=== PATIENT | female | born 1985 | race Hispanic/Latino ===

== ENCOUNTER 2022-04-03 15:52 | Emergency (ER) | payer MEDICAID, SELFPAY ==
[2022-04-03] VITALS (15 sets, daily range): BP systolic 157–178; BP diastolic 75–98; PULSE 57–70; RESP 16–18; TEMP 36.6; O2SAT 99–100; BMI 34.3
--- NOTE | 2022-04-03 16:21 | ED.RECABL ---
HPI - Recheck/Abnormal Lab/Rx <Elan Portillo DO - Last Filed: 04/10/22 00:37> General Chief Complaint: Recheck/Abnormal Lab/Rx Stated Complaint: high kidney levels, sent by provider Time Seen by Provider: 04/03/22 16:21 Source: patient Mode of arrival: Ambulatory History of Present Illness HPI narrative: 36-year-old female nonsmoker with no medical history presents with her and a chief complaint of elevated kidney levels. She states that she had been evaluated in September was found to have elevated creatinine (1.68) in the absence of any symptoms. She had followed up recently with her primary care provider and when results came back today she was contacted at home and instructed to present here. She denies any pain or fever chills. She takes no medications. She denies vomiting, diarrhea or trouble urinating. She has no chest pain or shortness of breath. She complains only of generalized fatigue and being tired. Related Data Home Medications Medication Instructions Recorded Confirmed No Known Home Medications 04/04/22 04/04/22 Allergies Allergy/AdvReac Type Severity Reaction Status Date / Time Penicillins Allergy Intermediate ITCHING Verified 04/03/22 16:11 Review of Systems <Elan Portillo DO - Last Filed: 04/10/22 00:37> Review of Systems Narrative: GENERAL: See HPI HEENT: Denies sinus pain, ear pain, sore throat, difficulty swallowing, dizziness. RESPIRATORY: Denies dyspnea, cough, wheezing, hemoptysis, sputum. CARDIOVASCULAR: Denies chest pain, palpitations, orthopnea, edema, GASTROINTESTINAL: Denies nausea, vomiting, abdominal pain, diarrhea, constipation, melena. : Denies dysuria, frequency, incontinence, hematuria, urinary retention. MUSCULOSKELETAL: denies weakness, joint pain, or bony pain SKIN: Denies rash, skin lesions, or other NEUROLOGIC: Denies weakness, headache, numbness, change in speech, confusion, seizures, incoordination. PSYCHIATRIC: No concerning psychosocial issues. 12 point review of systems is negative except for those stated above Patient History <Elan Portillo DO - Last Filed: 04/10/22 00:37> Social History Smoking Status: Never smoker Smoking Status: Never smoker alcohol intake frequency: 0-2 drinks per day Substance Use Type: does not use Exam <Elan Portillo DO - Last Filed: 04/10/22 00:37> Narrative Exam Narrative: GENERAL: [36] year old patient appears stated age. Well-developed patient, in mild distress. HEAD: Atraumatic. Normocephalic. EYES: Pupils equal round and reactive. Extraocular motions intact. No scleral icterus. No injection or drainage. ENT: Nose without bleeding, purulent drainage. Throat without erythema, tonsillar hypertrophy or exudate. Airway patent. NECK: Trachea midline. Non tender CARDIOVASCULAR: Regular rate and rhythm without murmurs, gallops, or rubs. RESPIRATORY: Clear to auscultation. Breath sounds equal bilaterally. No wheezes, rales, or rhonchi. GASTROINTESTINAL: Abdomen soft, non-tender, nondistended. EXTREMITIES: No edema or joint tenderness. BACK: Nontender without deformity or crepitance. No flank tenderness. NEURO: AOx3. SKIN: No rash or erythema of visible areas Initial Vital Signs Initial Vital Signs: Vital Signs Temperature 98 F 04/03/22 16:06 Pulse Rate 63 04/03/22 16:06 Respiratory Rate 16 04/03/22 16:06 Blood Pressure 157/82 H 04/03/22 16:06 Pulse Oximetry 100 04/03/22 16:06 Oxygen Delivery Method 04/03/22 16:06 <Debbie Donahue DO - Last Filed: 04/11/22 08:30> Initial Vital Signs Initial Vital Signs: Vital Signs Temperature 98 F 04/03/22 16:06 Pulse Rate 63 04/03/22 16:06 Respiratory Rate 16 04/03/22 16:06 Blood Pressure 157/82 H 04/03/22 16:06 Pulse Oximetry 100 04/03/22 16:06 Oxygen Delivery Method 04/03/22 16:06 <Ammon Cruz MD - Last Filed: 04/05/22 19:37> Initial Vital Signs Initial Vital Signs: Vital Signs Temperature 98 F 04/03/22 16:06 Pulse Rate 63 04/03/22 16:06 Respiratory Rate 16 04/03/22 16:06 Blood Pressure 157/82 H 04/03/22 16:06 Pulse Oximetry 100 04/03/22 16:06 Oxygen Delivery Method 04/03/22 16:06 Course <Elan Portillo DO - Last Filed: 04/10/22 00:37> Orders Ordered: Discontinued Medications Acetaminophen (Acetaminophen 325 Mg Tablet) 650 mg PO NOW ONE Stop: 04/04/22 20:33 Last Admin: 04/04/22 20:37 Dose: 650 mg Documented By: SERGIO Acetaminophen (Acetaminophen 325 Mg Tablet) 650 mg PO NOW ONE Stop: 04/05/22 15:48 Last Admin: 04/05/22 15:58 Dose: 650 mg Documented By: AMIE Sodium Chloride (Normal Saline 0.9%) 1,000 mls @ 1,000 mls/hr IV BOLUS ONE Stop: 04/03/22 17:48 Last Infusion: 04/03/22 18:50 Dose: 0 mls/hr Documented By: Admin: 04/03/22 16:58 Dose: 1,000 mls/hr Documented By: MAHI Sodium Chloride (Normal Saline 0.9%) 1,000 mls @ 150 mls/hr IV CONT JAZZMINE Last Infusion: 04/04/22 09:09 Dose: 0 mls/hr Documented By: Infusion: 04/04/22 02:29 Dose: 100 mls/hr Documented By: Admin: 04/03/22 23:35 Dose: 150 mls/hr Documented By: MAHI Sodium Chloride (Normal Saline 0.9%) 1,000 mls @ 100 mls/hr IV CONT JAZZMINE Last Admin: 04/04/22 09:00 Dose: Not Given Documented By: CTS Sodium Chloride (Normal Saline 0.9%) 1,000 mls @ 1,000 mls/hr IV BOLUS PRN PRN Reason: Fluid replacement Sodium Chloride (Normal Saline 0.9%) 500 mls @ 1,000 mls/hr IV BOLUS ONE Stop: 04/05/22 12:11 Last Infusion: 04/05/22 12:30 Dose: 0 mls/hr Documented By: Admin: 04/05/22 11:59 Dose: 1,000 mls/hr Documented By: AMIE Sodium Chloride (Normal Saline 0.9%) 1,000 mls @ 100 mls/hr IV BOLUS ONE Stop: 04/05/22 21:43 Last Infusion: 04/05/22 16:56 Dose: 0 mls/hr Documented By: Admin: 04/05/22 12:00 Dose: 100 mls/hr Documented By: AMIE Vital Signs Vital signs: Vital Signs - 8 hr 04/05/22 11:39 04/05/22 14:50 04/05/22 14:51 Temperature 98.0 F Pulse Rate 63 64 Respiratory Rate 16 16 Blood Pressure 157/88 H 140/84 140/84 Pulse Oximetry 99 99 Oxygen Delivery Method Room Air 04/05/22 14:51 04/05/22 16:35 04/05/22 16:34 Temperature Pulse Rate 73 67 67 Respiratory Rate 16 Blood Pressure 171/92 H Pulse Oximetry 91 100 100 Oxygen Delivery Method Room Air 04/05/22 16:54 Temperature Pulse Rate 63 Respiratory Rate 18 Blood Pressure 147/91 H Pulse Oximetry 100 Oxygen Delivery Method Room Air <Debbie Donahue DO - Last Filed: 04/11/22 08:30> Orders Ordered: Discontinued Medications Acetaminophen (Acetaminophen 325 Mg Tablet) 650 mg PO NOW ONE Stop: 04/04/22 20:33 Last Admin: 04/04/22 20:37 Dose: 650 mg Documented By: SERGIO Acetaminophen (Acetaminophen 325 Mg Tablet) 650 mg PO NOW ONE Stop: 04/05/22 15:48 Last Admin: 04/05/22 15:58 Dose: 650 mg Documented By: AMIE Sodium Chloride (Normal Saline 0.9%) 1,000 mls @ 1,000 mls/hr IV BOLUS ONE Stop: 04/03/22 17:48 Last Infusion: 04/03/22 18:50 Dose: 0 mls/hr Documented By: Admin: 04/03/22 16:58 Dose: 1,000 mls/hr Documented By: MAHI Sodium Chloride (Normal Saline 0.9%) 1,000 mls @ 150 mls/hr IV CONT JAZZMINE Last Infusion: 04/04/22 09:09 Dose: 0 mls/hr Documented By: Infusion: 04/04/22 02:29 Dose: 100 mls/hr Documented By: MARIA LUISA Admin: 04/03/22 23:35 Dose: 150 mls/hr Documented By: MAHI Sodium Chloride (Normal Saline 0.9%) 1,000 mls @ 100 mls/hr IV CONT JAZZMINE Last Admin: 04/04/22 09:00 Dose: Not Given Documented By: ANAYELI Sodium Chloride (Normal Saline 0.9%) 1,000 mls @ 1,000 mls/hr IV BOLUS PRN PRN Reason: Fluid replacement Sodium Chloride (Normal Saline 0.9%) 500 mls @ 1,000 mls/hr IV BOLUS ONE Stop: 04/05/22 12:11 Last Infusion: 04/05/22 12:30 Dose: 0 mls/hr Documented By: Admin: 04/05/22 11:59 Dose: 1,000 mls/hr Documented By: AMIE Sodium Chloride (Normal Saline 0.9%) 1,000 mls @ 100 mls/hr IV BOLUS ONE Stop: 04/05/22 21:43 Last Infusion: 04/05/22 16:56 Dose: 0 mls/hr Documented By: Admin: 04/05/22 12:00 Dose: 100 mls/hr Documented By: AMIE Reevaluation(s) Reevaluation #1: No complaints at this time. Used interperter language to review patient's labs and findings today and plan of care. She is aware of plan that she is currently boarding to talk to Nephrology and if improvement she might be able to be kept here if her renal function does not improve and she starts not making urine will require transfer. Time: 22:14 Consultations Consultation #1: Dr. Granados, nephrology at [facility]. Recommends further evaluation for vasculitis. Would recommend continuing fluids about 100 mL/hour, patient's creatinine improved to the 3-4 range could potentially be discharged home but if continuing in the 5 range probably needs transfer for renal biopsy. Would recommend C3, C4 complement, Anca, hep B, hep C, MAKAYLA, anti GBM and SPEP and UPEP for workup at this time. Time: 01:06 Vital Signs Vital signs: Vital Signs - 8 hr 04/05/22 11:39 04/05/22 14:50 04/05/22 14:51 Temperature 98.0 F Pulse Rate 63 64 Respiratory Rate 16 16 Blood Pressure 157/88 H 140/84 140/84 Pulse Oximetry 99 99 Oxygen Delivery Method Room Air 04/05/22 14:51 04/05/22 16:35 04/05/22 16:34 Temperature Pulse Rate 73 67 67 Respiratory Rate 16 Blood Pressure 171/92 H Pulse Oximetry 91 100 100 Oxygen Delivery Method Room Air 04/05/22 16:54 Temperature Pulse Rate 63 Respiratory Rate 18 Blood Pressure 147/91 H Pulse Oximetry 100 Oxygen Delivery Method Room Air <Ammon Cruz MD - Last Filed: 04/05/22 19:37> Orders Ordered: Discontinued Medications Acetaminophen (Acetaminophen 325 Mg Tablet) 650 mg PO NOW ONE Stop: 04/04/22 20:33 Last Admin: 04/04/22 20:37 Dose: 650 mg Documented By: SERGIO Acetaminophen (Acetaminophen 325 Mg Tablet) 650 mg PO NOW ONE Stop: 04/05/22 15:48 Last Admin: 04/05/22 15:58 Dose: 650 mg Documented By: AMIE Sodium Chloride (Normal Saline 0.9%) 1,000 mls @ 1,000 mls/hr IV BOLUS ONE Stop: 04/03/22 17:48 Last Infusion: 04/03/22 18:50 Dose: 0 mls/hr Documented By: Admin: 04/03/22 16:58 Dose: 1,000 mls/hr Documented By: MAHI Sodium Chloride (Normal Saline 0.9%) 1,000 mls @ 150 mls/hr IV CONT JAZZMINE Last Infusion: 04/04/22 09:09 Dose: 0 mls/hr Documented By: Infusion: 04/04/22 02:29 Dose: 100 mls/hr Documented By: DKReji Admin: 04/03/22 23:35 Dose: 150 mls/hr Documented By: MAHI Sodium Chloride (Normal Saline 0.9%) 1,000 mls @ 100 mls/hr IV CONT JAZZMINE Last Admin: 04/04/22 09:00 Dose: Not Given Documented By: CTS Sodium Chloride (Normal Saline 0.9%) 1,000 mls @ 1,000 mls/hr IV BOLUS PRN PRN Reason: Fluid replacement Sodium Chloride (Normal Saline 0.9%) 500 mls @ 1,000 mls/hr IV BOLUS ONE Stop: 04/05/22 12:11 Last Infusion: 04/05/22 12:30 Dose: 0 mls/hr Documented By: Admin: 04/05/22 11:59 Dose: 1,000 mls/hr Documented By: AMIE Sodium Chloride (Normal Saline 0.9%) 1,000 mls @ 100 mls/hr IV BOLUS ONE Stop: 04/05/22 21:43 Last Infusion: 04/05/22 16:56 Dose: 0 mls/hr Documented By: Admin: 04/05/22 12:00 Dose: 100 mls/hr Documented By: RLS Vital Signs Vital signs: Vital Signs - 8 hr 04/05/22 11:39 04/05/22 14:50 04/05/22 14:51 Temperature 98.0 F Pulse Rate 63 64 Respiratory Rate 16 16 Blood Pressure 157/88 H 140/84 140/84 Pulse Oximetry 99 99 Oxygen Delivery Method Room Air 04/05/22 14:51 04/05/22 16:35 04/05/22 16:34 Temperature Pulse Rate 73 67 67 Respiratory Rate 16 Blood Pressure 171/92 H Pulse Oximetry 91 100 100 Oxygen Delivery Method Room Air 04/05/22 16:54 Temperature Pulse Rate 63 Respiratory Rate 18 Blood Pressure 147/91 H Pulse Oximetry 100 Oxygen Delivery Method Room Air MDM - Recheck/Abnormal Lab/Rx <Elan Portillo, DO - Last Filed: 04/10/22 00:37> Lab Data Result diagrams: 04/04/22 08:00 04/05/22 13:40 Labs: Lab Results 04/03/22 04/03/22 04/03/22 Range/Units 16:11 16:11 16:25 WBC 5.2 (4.5-11.0) X10^3/uL RBC 2.93 L (4.0-5.2) X10^6/uL Hgb 9.1 L (12.0-16.0) g/dL Hct 26.1 L (36-46) % MCV 89.3 (80-100) fL MCH 31.0 (26-34) PG MCHC 34.7 (30-36) % RDW 13.9 (11.6-14.8) % Plt Count 202 (150-400) X10^3/uL Neut % (Auto) 64.9 (50-75) % Lymph % (Auto) 25.1 (25-40) % [place] % (Auto) 7.4 (3-14) % Eos % (Auto) 1.6 L (2-4) % Baso % (Auto) 1.0 (0-2) % Neut # (Auto) 3400 (6367-9426) /uL Lymph # (Auto) 1300 (8892-4083) /uL [place] # (Auto) 400 (0-900) /uL Eos # (Auto) 100 (0-450) /uL Baso # (Auto) 0 (0-100) /uL Sodium 137 (137-145) mmol/L Potassium 5.0 (3.4-5.1) mmol/L Chloride 108 H (98-107) mmol/L Carbon Dioxide 18 L (22-32) mmol/L BUN 71 H (7-17) mg/dL Creatinine 6.46 H (0.52-1.04) mg/dL Estimated GFR 8 L (>60) mL/min BUN/Creatinine Ratio 11.0 (6-22) Glucose 94 (70-100) mg/dL Calcium 7.0 L (8.4-10.2) mg/dL Phosphorus (2.5-4.5) mg/dL Magnesium (1.6-2.3) mg/dL Total Bilirubin (0.2-1.3) mg/dL AST (14-36) IU/L ALT (<35) IU/L Alkaline Phosphatase (38-126) U/L Total Protein (6.3-8.2) g/dL Total Protein (PEP) (6.0-8.5) g/dL Albumin (3.5-5.0) g/dL Albumin (PEP) (2.9-4.4) g/dL Globulin (1.7-4.1) g/dL Albumin/Globulin Ratio (1.0-2.8) Albumin/Globulin (PEP) (0.7-1.7) Ydtgn-7-Qfmzzqmil (0.0-0.4) g/dL Agwug-8-Cygxcwrbe (0.4-1.0) g/dL Beta Globulins (0.7-1.3) g/dL Gamma Globulins (0.4-1.8) g/dL Gamma Glob/Tot Protein (2.2-3.9) g/dL M-Celso (Not Observed) g/dL M-Celso % (Not Observed) % Urine Color Urine Appearance Urine pH (4.5-8.0) Ur Specific [place] (1.000-1.035) Urine Protein (Negative) Urine Glucose (UA) (Negative) g/dL Urine Ketones (NEGATIVE) Urine Occult Blood (Negative) Urine Nitrate (Negative) Urine Bilirubin (NEGATIVE) Urine Urobilinogen (0.2) E.U./dL Ur Leukocyte Esterase (NEGATIVE) Urine RBC (0-5/HPF) Urine WBC (0-5/HPF) Ur Squamous Epith Cells (0-5/HPF) Amorphous Sediment Urine Bacteria (None) Ur Culture Indicated? Urine Eosinophils Urine Osmolality (.) mOsmol/kg Ur Random Sodium (30-90) mmol/L Urine Creatinine mg/dL Urine Total Protein (Not Estab.) mg/dL Urine Albumin (.) % U Iqako-2-Euuzrxce (.) % U Vdeqi-8-Eryodbkv (.) % U Beta Globulin (.) % U Gamma Globulin (.) % Urine PEP Note (.) Urine Test (Negative) c-ANCA Titer (Neg:<1:20) titer p-ANCA Titer (Neg:<1:20) titer Atypical p-ANCA Titer (Neg:<1:20) titer Complement C3 (82-167) mg/dL Complement C4 (12-38) mg/dL SARS-CoV-2 (PCR) Negative (Negative) Hepatitis A IgM Ab (Negative) Hep Bs Antigen (Negative) Hep B Core IgM Ab (Negative) Hepatitis C Antibody (0.0-0.9) s/co ratio Hep C Ab Signal/Cutoff (.) Ref Lab Notation (.) 04/03/22 04/03/22 04/03/22 Range/Units 17:40 17:40 17:40 WBC (4.5-11.0) X10^3/uL RBC (4.0-5.2) X10^6/uL Hgb (12.0-16.0) g/dL Hct (36-46) % MCV (80-100) fL MCH (26-34) PG MCHC (30-36) % RDW (11.6-14.8) % Plt Count (150-400) X10^3/uL Neut % (Auto) (50-75) % Lymph % (Auto) (25-40) % [place] % (Auto) (3-14) % Eos % (Auto) (2-4) % Baso % (Auto) (0-2) % Neut # (Auto) (5412-1699) /uL Lymph # (Auto) (1016-7119) /uL [place] # (Auto) (0-900) /uL Eos # (Auto) (0-450) /uL Baso # (Auto) (0-100) /uL Sodium (137-145) mmol/L Potassium (3.4-5.1) mmol/L Chloride (98-107) mmol/L Carbon Dioxide (22-32) mmol/L BUN (7-17) mg/dL Creatinine (0.52-1.04) mg/dL Estimated GFR (>60) mL/min BUN/Creatinine Ratio (6-22) Glucose (70-100) mg/dL Calcium (8.4-10.2) mg/dL Phosphorus (2.5-4.5) mg/dL Magnesium (1.6-2.3) mg/dL Total Bilirubin (0.2-1.3) mg/dL AST (14-36) IU/L ALT (<35) IU/L Alkaline Phosphatase (38-126) U/L Total Protein (6.3-8.2) g/dL Total Protein (PEP) (6.0-8.5) g/dL Albumin (3.5-5.0) g/dL Albumin (PEP) (2.9-4.4) g/dL Globulin (1.7-4.1) g/dL Albumin/Globulin Ratio (1.0-2.8) Albumin/Globulin (PEP) (0.7-1.7) Tlnxu-8-Itfwrsgaz (0.0-0.4) g/dL Sztip-8-Ugvfwnufu (0.4-1.0) g/dL Beta Globulins (0.7-1.3) g/dL Gamma Globulins (0.4-1.8) g/dL Gamma Glob/Tot Protein (2.2-3.9) g/dL M-Celso (Not Observed) g/dL M-Celso % (Not Observed) % Urine Color Other Urine Appearance Sl cloudy Urine pH 6.5 (4.5-8.0) Ur Specific [place] 1.010 (1.000-1.035) Urine Protein 3+ H (Negative) Urine Glucose (UA) Negative (Negative) g/dL Urine Ketones Negative (NEGATIVE) Urine Occult Blood 3+ H (Negative) Urine Nitrate Negative (Negative) Urine Bilirubin Negative (NEGATIVE) Urine Urobilinogen 0.2 (0.2) E.U./dL Ur Leukocyte Esterase Negative (NEGATIVE) Urine RBC >100/hpf H (0-5/HPF) Urine WBC 1-5/hpf (0-5/HPF) Ur Squamous Epith Cells 0-1 /hpf (0-5/HPF) Amorphous Sediment 1+ Urine Bacteria Occasional (0-1) (None) Ur Culture Indicated? Specimen cultured Urine Eosinophils Urine Osmolality (.) mOsmol/kg Ur Random Sodium 83 (30-90) mmol/L Urine Creatinine 57.0 mg/dL Urine Total Protein (Not Estab.) mg/dL Urine Albumin (.) % U Dtnzl-4-Nwzoiipu (.) % U Lqbii-2-Xrnqifwu (.) % U Beta Globulin (.) % U Gamma Globulin (.) % Urine PEP Note (.) Urine Test Negative (Negative) c-ANCA Titer (Neg:<1:20) titer p-ANCA Titer (Neg:<1:20) titer Atypical p-ANCA Titer (Neg:<1:20) titer Complement C3 (82-167) mg/dL Complement C4 (12-38) mg/dL SARS-CoV-2 (PCR) (Negative) Hepatitis A IgM Ab (Negative) Hep Bs Antigen (Negative) Hep B Core IgM Ab (Negative) Hepatitis C Antibody (0.0-0.9) s/co ratio Hep C Ab Signal/Cutoff (.) Ref Lab Notation (.) 04/03/22 04/03/22 04/03/22 Range/Units 17:40 21:41 21:50 WBC (4.5-11.0) X10^3/uL RBC (4.0-5.2) X10^6/uL Hgb (12.0-16.0) g/dL Hct (36-46) % MCV (80-100) fL MCH (26-34) PG MCHC (30-36) % RDW (11.6-14.8) % Plt Count (150-400) X10^3/uL Neut % (Auto) (50-75) % Lymph % (Auto) (25-40) % [place] % (Auto) (3-14) % Eos % (Auto) (2-4) % Baso % (Auto) (0-2) % Neut # (Auto) (1450-2429) /uL Lymph # (Auto) (0655-1695) /uL [place] # (Auto) (0-900) /uL Eos # (Auto) (0-450) /uL Baso # (Auto) (0-100) /uL Sodium 137 (137-145) mmol/L Potassium 4.8 (3.4-5.1) mmol/L Chloride 111 H (98-107) mmol/L Carbon Dioxide 15 L (22-32) mmol/L BUN 68 H (7-17) mg/dL Creatinine 5.93 H (0.52-1.04) mg/dL Estimated GFR 9 L (>60) mL/min BUN/Creatinine Ratio 11.5 (6-22) Glucose 91 (70-100) mg/dL Calcium 6.5 L (8.4-10.2) mg/dL Phosphorus 5.2 H (2.5-4.5) mg/dL Magnesium 2.0 (1.6-2.3) mg/dL Total Bilirubin 0.4 (0.2-1.3) mg/dL AST 17 (14-36) IU/L ALT 9 (<35) IU/L Alkaline Phosphatase 47 (38-126) U/L Total Protein 6.3 (6.3-8.2) g/dL Total Protein (PEP) (6.0-8.5) g/dL Albumin 3.4 L (3.5-5.0) g/dL Albumin (PEP) (2.9-4.4) g/dL Globulin 2.9 (1.7-4.1) g/dL Albumin/Globulin Ratio 1.2 (1.0-2.8) Albumin/Globulin (PEP) (0.7-1.7) Xeglq-9-Mfdzrhugd (0.0-0.4) g/dL Erhnz-7-Dfqdioere (0.4-1.0) g/dL Beta Globulins (0.7-1.3) g/dL Gamma Globulins (0.4-1.8) g/dL Gamma Glob/Tot Protein (2.2-3.9) g/dL M-Celso (Not Observed) g/dL M-Cel[place] % (Not Observed) % Urine Color Urine Appearance Urine pH (4.5-8.0) Ur Specific [place] (1.000-1.035) Urine Protein (Negative) Urine Glucose (UA) (Negative) g/dL Urine Ketones (NEGATIVE) Urine Occult Blood (Negative) Urine Nitrate (Negative) Urine Bilirubin (NEGATIVE) Urine Urobilinogen (0.2) E.U./dL Ur Leukocyte Esterase (NEGATIVE) Urine RBC (0-5/HPF) Urine WBC (0-5/HPF) Ur Squamous Epith Cells (0-5/HPF) Amorphous Sediment Urine Bacteria (None) Ur Culture Indicated? Urine Eosinophils TNP Urine Osmolality 347 (.) mOsmol/kg Ur Random Sodium (30-90) mmol/L Urine Creatinine mg/dL Urine Total Protein (Not Estab.) mg/dL Urine Albumin (.) % U Jribb-4-Dmtpnzra (.) % U Asnhp-6-Nidyhxly (.) % U Beta Globulin (.) % U Gamma Globulin (.) % Urine PEP Note (.) Urine Test (Negative) c-ANCA Titer (Neg:<1:20) titer p-ANCA Titer (Neg:<1:20) titer Atypical p-ANCA Titer (Neg:<1:20) titer Complement C3 (82-167) mg/dL Complement C4 (12-38) mg/dL SARS-CoV-2 (PCR) (Negative) Hepatitis A IgM Ab (Negative) Hep Bs Antigen (Negative) Hep B Core IgM Ab (Negative) Hepatitis C Antibody (0.0-0.9) s/co ratio Hep C Ab Signal/Cutoff (.) Ref Lab Notation (.) 04/04/22 04/04/22 04/04/22 Range/Units 01:47 01:47 08:00 WBC (4.5-11.0) X10^3/uL RBC (4.0-5.2) X10^6/uL Hgb 8.4 L (12.0-16.0) g/dL Hct 24.7 L (36-46) % MCV (80-100) fL MCH (26-34) PG MCHC (30-36) % RDW (11.6-14.8) % Plt Count (150-400) X10^3/uL Neut % (Auto) (50-75) % Lymph % (Auto) (25-40) % [place] % (Auto) (3-14) % Eos % (Auto) (2-4) % Baso % (Auto) (0-2) % Neut # (Auto) (5855-9693) /uL Lymph # (Auto) (2624-9392) /uL [place] # (Auto) (0-900) /uL Eos # (Auto) (0-450) /uL Baso # (Auto) (0-100) /uL Sodium (137-145) mmol/L Potassium (3.4-5.1) mmol/L Chloride (98-107) mmol/L Carbon Dioxide (22-32) mmol/L BUN (7-17) mg/dL Creatinine (0.52-1.04) mg/dL Estimated GFR (>60) mL/min BUN/Creatinine Ratio (6-22) Glucose (70-100) mg/dL Calcium (8.4-10.2) mg/dL Phosphorus (2.5-4.5) mg/dL Magnesium (1.6-2.3) mg/dL Total Bilirubin (0.2-1.3) mg/dL AST (14-36) IU/L ALT (<35) IU/L Alkaline Phosphatase (38-126) U/L Total Protein (6.3-8.2) g/dL Total Protein (PEP) 5.6 L (6.0-8.5) g/dL Albumin (3.5-5.0) g/dL Albumin (PEP) 3.0 (2.9-4.4) g/dL Globulin (1.7-4.1) g/dL Albumin/Globulin Ratio (1.0-2.8) Albumin/Globulin (PEP) 1.2 (0.7-1.7) Kyjvf-3-Yejigxfvm 0.2 (0.0-0.4) g/dL Ruhre-3-Rshelvevm 0.7 (0.4-1.0) g/dL Beta Globulins 0.9 (0.7-1.3) g/dL Gamma Globulins 0.9 (0.4-1.8) g/dL Gamma Glob/Tot Protein 2.6 (2.2-3.9) g/dL M-Celso Not observed (Not Observed) g/dL M-Cel[place] % Not observed (Not Observed) % Urine Color Urine Appearance Urine pH (4.5-8.0) Ur Specific [place] (1.000-1.035) Urine Protein (Negative) Urine Glucose (UA) (Negative) g/dL Urine Ketones (NEGATIVE) Urine Occult Blood (Negative) Urine Nitrate (Negative) Urine Bilirubin (NEGATIVE) Urine Urobilinogen (0.2) E.U./dL Ur Leukocyte Esterase (NEGATIVE) Urine RBC (0-5/HPF) Urine WBC (0-5/HPF) Ur Squamous Epith Cells (0-5/HPF) Amorphous Sediment Urine Bacteria (None) Ur Culture Indicated? Urine Eosinophils Urine Osmolality (.) mOsmol/kg Ur Random Sodium (30-90) mmol/L Urine Creatinine mg/dL Urine Total Protein 144.9 (Not Estab.) mg/dL Urine Albumin 51.7 (.) % U Mbpgx-4-Ejhpjusb 5.5 (.) % U Aybkf-3-Gyydoeso 8.9 (.) % U Beta Globulin 19.6 (.) % U Gamma Globulin 14.4 (.) % Urine PEP Note Comment (.) Urine Test (Negative) c-ANCA Titer <1:20 (Neg:<1:20) titer p-ANCA Titer 1:160 H (Neg:<1:20) titer Atypical p-ANCA Titer <1:20 (Neg:<1:20) titer Complement C3 80 L (82-167) mg/dL Complement C4 21 (12-38) mg/dL SARS-CoV-2 (PCR) (Negative) Hepatitis A IgM Ab Negative (Negative) Hep Bs Antigen Negative (Negative) Hep B Core IgM Ab Negative (Negative) Hepatitis C Antibody <0.1 (0.0-0.9) s/co ratio Hep C Ab Signal/Cutoff Comment (.) Ref Lab Notation Comment (.) 04/04/22 04/04/22 04/05/22 Range/Units 08:00 08:18 05:56 WBC (4.5-11.0) X10^3/uL RBC (4.0-5.2) X10^6/uL Hgb (12.0-16.0) g/dL Hct (36-46) % MCV (80-100) fL MCH (26-34) PG MCHC (30-36) % RDW (11.6-14.8) % Plt Count (150-400) X10^3/uL Neut % (Auto) (50-75) % Lymph % (Auto) (25-40) % [place] % (Auto) (3-14) % Eos % (Auto) (2-4) % Baso % (Auto) (0-2) % Neut # (Auto) (8989-6488) /uL Lymph # (Auto) (8641-0182) /uL [place] # (Auto) (0-900) /uL Eos # (Auto) (0-450) /uL Baso # (Auto) (0-100) /uL Sodium 136 L 137 (137-145) mmol/L Potassium 4.7 4.6 (3.4-5.1) mmol/L Chloride 112 H 111 H (98-107) mmol/L Carbon Dioxide 16 L 17 L (22-32) mmol/L BUN 62 H 64 H (7-17) mg/dL Creatinine 5.76 H 6.25 H (0.52-1.04) mg/dL Estimated GFR 9 L 8 L (>60) mL/min BUN/Creatinine Ratio 10.8 10.2 (6-22) Glucose 85 84 (70-100) mg/dL Calcium 6.4 L* 6.9 L (8.4-10.2) mg/dL Phosphorus 5.3 H (2.5-4.5) mg/dL Magnesium (1.6-2.3) mg/dL Total Bilirubin (0.2-1.3) mg/dL AST (14-36) IU/L ALT (<35) IU/L Alkaline Phosphatase (38-126) U/L Total Protein (6.3-8.2) g/dL Total Protein (PEP) (6.0-8.5) g/dL Albumin 3.1 L (3.5-5.0) g/dL Albumin (PEP) (2.9-4.4) g/dL Globulin (1.7-4.1) g/dL Albumin/Globulin Ratio (1.0-2.8) Albumin/Globulin (PEP) (0.7-1.7) Pfmid-6-Ibpamgbyw (0.0-0.4) g/dL Dmdqo-8-Nvfvdjgxh (0.4-1.0) g/dL Beta Globulins (0.7-1.3) g/dL Gamma Globulins (0.4-1.8) g/dL Gamma Glob/Tot Protein (2.2-3.9) g/dL M-Celso (Not Observed) g/dL M-Celso % (Not Observed) % Urine Color Urine Appearance Urine pH (4.5-8.0) Ur Specific [place] (1.000-1.035) Urine Protein (Negative) Urine Glucose (UA) (Negative) g/dL Urine Ketones (NEGATIVE) Urine Occult Blood (Negative) Urine Nitrate (Negative) Urine Bilirubin (NEGATIVE) Urine Urobilinogen (0.2) E.U./dL Ur Leukocyte Esterase (NEGATIVE) Urine RBC (0-5/HPF) Urine WBC (0-5/HPF) Ur Squamous Epith Cells (0-5/HPF) Amorphous Sediment Urine Bacteria (None) Ur Culture Indicated? Urine Eosinophils Urine Osmolality (.) mOsmol/kg Ur Random Sodium (30-90) mmol/L Urine Creatinine mg/dL Urine Total Protein (Not Estab.) mg/dL Urine Albumin (.) % U Uxdaq-3-Lynsscip (.) % U Eokrp-1-Ijkyiwuo (.) % U Beta Globulin (.) % U Gamma Globulin (.) % Urine PEP Note (.) Urine Test (Negative) c-ANCA Titer (Neg:<1:20) titer p-ANCA Titer (Neg:<1:20) titer Atypical p-ANCA Titer (Neg:<1:20) titer Complement C3 (82-167) mg/dL Complement C4 (12-38) mg/dL SARS-CoV-2 (PCR) (Negative) Hepatitis A IgM Ab (Negative) Hep Bs Antigen (Negative) Hep B Core IgM Ab (Negative) Hepatitis C Antibody (0.0-0.9) s/co ratio Hep C Ab Signal/Cutoff (.) Ref Lab Notation (.) 04/05/22 04/05/22 Range/Units 13:40 16:40 WBC (4.5-11.0) X10^3/uL RBC (4.0-5.2) X10^6/uL Hgb (12.0-16.0) g/dL Hct (36-46) % MCV (80-100) fL MCH (26-34) PG MCHC (30-36) % RDW (11.6-14.8) % Plt Count (150-400) X10^3/uL Neut % (Auto) (50-75) % Lymph % (Auto) (25-40) % [place] % (Auto) (3-14) % Eos % (Auto) (2-4) % Baso % (Auto) (0-2) % Neut # (Auto) (3690-8119) /uL Lymph # (Auto) (2282-5859) /uL [place] # (Auto) (0-900) /uL Eos # (Auto) (0-450) /uL Baso # (Auto) (0-100) /uL Sodium 136 L (137-145) mmol/L Potassium 5.1 (3.4-5.1) mmol/L Chloride 113 H (98-107) mmol/L Carbon Dioxide 17 L (22-32) mmol/L BUN 61 H (7-17) mg/dL Creatinine 6.02 H (0.52-1.04) mg/dL Estimated GFR 9 L (>60) mL/min BUN/Creatinine Ratio 10.1 (6-22) Glucose 142 H (70-100) mg/dL Calcium 6.5 L (8.4-10.2) mg/dL Phosphorus (2.5-4.5) mg/dL Magnesium (1.6-2.3) mg/dL Total Bilirubin 0.2 (0.2-1.3) mg/dL AST 13 L (14-36) IU/L ALT 8 (<35) IU/L Alkaline Phosphatase 52 (38-126) U/L Total Protein 6.1 L (6.3-8.2) g/dL Total Protein (PEP) (6.0-8.5) g/dL Albumin 3.1 L (3.5-5.0) g/dL Albumin (PEP) (2.9-4.4) g/dL Globulin 3.0 (1.7-4.1) g/dL Albumin/Globulin Ratio 1.0 (1.0-2.8) Albumin/Globulin (PEP) (0.7-1.7) Jlcrs-6-Rinilmupd (0.0-0.4) g/dL Uyoow-1-Cowhjuoli (0.4-1.0) g/dL Beta Globulins (0.7-1.3) g/dL Gamma Globulins (0.4-1.8) g/dL Gamma Glob/Tot Protein (2.2-3.9) g/dL M-Celso (Not Observed) g/dL M-Celso % (Not Observed) % Urine Color Other Urine Appearance Sl cloudy Urine pH 6.0 (4.5-8.0) Ur Specific [place] 1.010 (1.000-1.035) Urine Protein 2+ H (Negative) Urine Glucose (UA) Trace H (Negative) g/dL Urine Ketones Negative (NEGATIVE) Urine Occult Blood 3+ H (Negative) Urine Nitrate Negative (Negative) Urine Bilirubin Negative (NEGATIVE) Urine Urobilinogen 0.2 (0.2) E.U./dL Ur Leukocyte Esterase Negative (NEGATIVE) Urine RBC >100/hpf H (0-5/HPF) Urine WBC 1-5/hpf (0-5/HPF) Ur Squamous Epith Cells 1-5 /hpf (0-5/HPF) Amorphous Sediment 1+ Urine Bacteria Few (2-10) H (None) Ur Culture Indicated? Specimen cultured Urine Eosinophils Urine Osmolality (.) mOsmol/kg Ur Random Sodium (30-90) mmol/L Urine Creatinine mg/dL Urine Total Protein (Not Estab.) mg/dL Urine Albumin (.) % U Gzqys-4-Toeoiegp (.) % U Rswyd-3-Lzrfypox (.) % U Beta Globulin (.) % U Gamma Globulin (.) % Urine PEP Note (.) Urine Test (Negative) c-ANCA Titer (Neg:<1:20) titer p-ANCA Titer (Neg:<1:20) titer Atypical p-ANCA Titer (Neg:<1:20) titer Complement C3 (82-167) mg/dL Complement C4 (12-38) mg/dL SARS-CoV-2 (PCR) (Negative) Hepatitis A IgM Ab (Negative) Hep Bs Antigen (Negative) Hep B Core IgM Ab (Negative) Hepatitis C Antibody (0.0-0.9) s/co ratio Hep C Ab Signal/Cutoff (.) Ref Lab Notation (.) Imaging Data Renal US: Radiologist's Impression: [address] [address] Ultrasound Report Signed Patient: Betty Brock MR#: [id number] : 1985 Acct:[id number] Age/Sex: 36 / F Date of Service: 04/03/22 Loc: ED Accession Number: [id number] ?? Procedure: US renal complete Ordering Provider: Elan Portillo D.O. PROCEDURE:? US RENAL COMPLETE ? INDICATIONS:? renal failure ? TECHNIQUE:? Real-time scanning was performed of the kidneys and bladder, with image documentation.? ? COMPARISON:? None. ? FINDINGS:? ? Kidneys:? Kidneys are normal in size.? Right kidney measures 8.8 cm long; left kidney measures 8.0 cm long.? Poor corticomedullary differentiation is present bilaterally.? Echogenic renal parenchyma is present bilaterally.? No hydronephrosis or nephrolithiasis. ?No suspicious solid mass lesions.? ? Bladder:? Patient voided prior to the examination.? insufficient differences in specific gravity between ureteral and bladder urine).? ? Miscellaneous:? No free pelvic fluid.? Left ovarian cyst measuring 37 mm. ? IMPRESSION:? 1. Abnormal appearance of the renal parenchyma bilaterally, consistent with medical renal disease. 2. No hydronephrosis.? ? ? Dictated by: Darya Garcia M.D. on 04/03/2022 at 18:20 ? ? Approved by: Darya Garcia M.D. on 04/03/2022 at 18:21 ? [facility] Narrative Medical decision making narrative: Rowan 04/03/22 2215: Reviewed patient's labs, plan to repeat her renal function and electrolytes, CT findings today, we were able to rule out some causes of her symptoms but not all inner currently working her up. She is no complaints or concerns currently. Patient's renal function mildly improved with a creatinine of 5, no hyperkalemia. CT does not show any other acute changes as well she is have a left adnexal cyst. Findings were discussed with the patient. Plan to continue monitor, strict I's and O's, fluids were changed and are continuing at 100 mL/hour and patient has been urinating regularly. Discussed with Dr. Granados with Nephrology in [place] who recommends evaluating further for vasculitis and recommendations are included above and labs ordered based on his recommendations. If patient's creatinine continues to improve and she is urinating regularly there is potential for outpatient follow-up but if her creatinine continues in the 4-5 range bullet clear still need transfer for renal biopsy. [facility] refused. Patient on [facility] list secondary to no regional bed availability. Patient signed out to Dr. Portillo while awaiting possible transfer, am labs at 0800 and gentle fluids. [0700] (Bandar) Patient received in sign out from Dr. Molina]. I have reviewed the clinical course overnight. Repeat labs ordered. Patient feeling relatively well. <Debbie Donahue, DO - Last Filed: 04/11/22 08:30> Lab Data Labs: Lab Results 04/03/22 04/03/22 04/03/22 Range/Units 16:11 16:11 16:25 WBC 5.2 (4.5-11.0) X10^3/uL RBC 2.93 L (4.0-5.2) X10^6/uL Hgb 9.1 L (12.0-16.0) g/dL Hct 26.1 L (36-46) % MCV 89.3 (80-100) fL MCH 31.0 (26-34) PG MCHC 34.7 (30-36) % RDW 13.9 (11.6-14.8) % Plt Count 202 (150-400) X10^3/uL Neut % (Auto) 64.9 (50-75) % Lymph % (Auto) 25.1 (25-40) % [place] % (Auto) 7.4 (3-14) % Eos % (Auto) 1.6 L (2-4) % Baso % (Auto) 1.0 (0-2) % Neut # (Auto) 3400 (9216-1744) /uL Lymph # (Auto) 1300 (5561-0857) /uL [place] # (Auto) 400 (0-900) /uL Eos # (Auto) 100 (0-450) /uL Baso # (Auto) 0 (0-100) /uL Sodium 137 (137-145) mmol/L Potassium 5.0 (3.4-5.1) mmol/L Chloride 108 H (98-107) mmol/L Carbon Dioxide 18 L (22-32) mmol/L BUN 71 H (7-17) mg/dL Creatinine 6.46 H (0.52-1.04) mg/dL Estimated GFR 8 L (>60) mL/min BUN/Creatinine Ratio 11.0 (6-22) Glucose 94 (70-100) mg/dL Calcium 7.0 L (8.4-10.2) mg/dL Phosphorus (2.5-4.5) mg/dL Magnesium (1.6-2.3) mg/dL Total Bilirubin (0.2-1.3) mg/dL AST (14-36) IU/L ALT (<35) IU/L Alkaline Phosphatase (38-126) U/L Total Protein (6.3-8.2) g/dL Total Protein (PEP) (6.0-8.5) g/dL Albumin (3.5-5.0) g/dL Albumin (PEP) (2.9-4.4) g/dL Globulin (1.7-4.1) g/dL Albumin/Globulin Ratio (1.0-2.8) Albumin/Globulin (PEP) (0.7-1.7) Hwwqw-6-Qbfkmfisj (0.0-0.4) g/dL Ekhlj-0-Yzzfnhbrl (0.4-1.0) g/dL Beta Globulins (0.7-1.3) g/dL Gamma Globulins (0.4-1.8) g/dL Gamma Glob/Tot Protein (2.2-3.9) g/dL M-Celso (Not Observed) g/dL M-Celso % (Not Observed) % Urine Color Urine Appearance Urine pH (4.5-8.0) Ur Specific [place] (1.000-1.035) Urine Protein (Negative) Urine Glucose (UA) (Negative) g/dL Urine Ketones (NEGATIVE) Urine Occult Blood (Negative) Urine Nitrate (Negative) Urine Bilirubin (NEGATIVE) Urine Urobilinogen (0.2) E.U./dL Ur Leukocyte Esterase (NEGATIVE) Urine RBC (0-5/HPF) Urine WBC (0-5/HPF) Ur Squamous Epith Cells (0-5/HPF) Amorphous Sediment Urine Bacteria (None) Ur Culture Indicated? Urine Eosinophils Urine Osmolality (.) mOsmol/kg Ur Random Sodium (30-90) mmol/L Urine Creatinine mg/dL Urine Total Protein (Not Estab.) mg/dL Urine Albumin (.) % U Cvdst-5-Umtfvpjf (.) % U Bezni-5-Meyvuavs (.) % U Beta Globulin (.) % U Gamma Globulin (.) % Urine PEP Note (.) Urine Test (Negative) c-ANCA Titer (Neg:<1:20) titer p-ANCA Titer (Neg:<1:20) titer Atypical p-ANCA Titer (Neg:<1:20) titer Complement C3 (82-167) mg/dL Complement C4 (12-38) mg/dL SARS-CoV-2 (PCR) Negative (Negative) Hepatitis A IgM Ab (Negative) Hep Bs Antigen (Negative) Hep B Core IgM Ab (Negative) Hepatitis C Antibody (0.0-0.9) s/co ratio Hep C Ab Signal/Cutoff (.) Ref Lab Notation (.) 04/03/22 04/03/22 04/03/22 Range/Units 17:40 17:40 17:40 WBC (4.5-11.0) X10^3/uL RBC (4.0-5.2) X10^6/uL Hgb (12.0-16.0) g/dL Hct (36-46) % MCV (80-100) fL MCH (26-34) PG MCHC (30-36) % RDW (11.6-14.8) % Plt Count (150-400) X10^3/uL Neut % (Auto) (50-75) % Lymph % (Auto) (25-40) % [place] % (Auto) (3-14) % Eos % (Auto) (2-4) % Baso % (Auto) (0-2) % Neut # (Auto) (3926-6654) /uL Lymph # (Auto) (3523-2643) /uL [place] # (Auto) (0-900) /uL Eos # (Auto) (0-450) /uL Baso # (Auto) (0-100) /uL Sodium (137-145) mmol/L Potassium (3.4-5.1) mmol/L Chloride (98-107) mmol/L Carbon Dioxide (22-32) mmol/L BUN (7-17) mg/dL Creatinine (0.52-1.04) mg/dL Estimated GFR (>60) mL/min BUN/Creatinine Ratio (6-22) Glucose (70-100) mg/dL Calcium (8.4-10.2) mg/dL Phosphorus (2.5-4.5) mg/dL Magnesium (1.6-2.3) mg/dL Total Bilirubin (0.2-1.3) mg/dL AST (14-36) IU/L ALT (<35) IU/L Alkaline Phosphatase (38-126) U/L Total Protein (6.3-8.2) g/dL Total Protein (PEP) (6.0-8.5) g/dL Albumin (3.5-5.0) g/dL Albumin (PEP) (2.9-4.4) g/dL Globulin (1.7-4.1) g/dL Albumin/Globulin Ratio (1.0-2.8) Albumin/Globulin (PEP) (0.7-1.7) Nagwh-7-Arssxnxqx (0.0-0.4) g/dL Ermzo-8-Awbplyjbr (0.4-1.0) g/dL Beta Globulins (0.7-1.3) g/dL Gamma Globulins (0.4-1.8) g/dL Gamma Glob/Tot Protein (2.2-3.9) g/dL M-Celso (Not Observed) g/dL M-Celso % (Not Observed) % Urine Color Other Urine Appearance Sl cloudy Urine pH 6.5 (4.5-8.0) Ur Specific [place] 1.010 (1.000-1.035) Urine Protein 3+ H (Negative) Urine Glucose (UA) Negative (Negative) g/dL Urine Ketones Negative (NEGATIVE) Urine Occult Blood 3+ H (Negative) Urine Nitrate Negative (Negative) Urine Bilirubin Negative (NEGATIVE) Urine Urobilinogen 0.2 (0.2) E.U./dL Ur Leukocyte Esterase Negative (NEGATIVE) Urine RBC >100/hpf H (0-5/HPF) Urine WBC 1-5/hpf (0-5/HPF) Ur Squamous Epith Cells 0-1 /hpf (0-5/HPF) Amorphous Sediment 1+ Urine Bacteria Occasional (0-1) (None) Ur Culture Indicated? Specimen cultured Urine Eosinophils Urine Osmolality (.) mOsmol/kg Ur Random Sodium 83 (30-90) mmol/L Urine Creatinine 57.0 mg/dL Urine Total Protein (Not Estab.) mg/dL Urine Albumin (.) % U Uttuk-9-Eseuribt (.) % U Gjuen-5-Vybnfncu (.) % U Beta Globulin (.) % U Gamma Globulin (.) % Urine PEP Note (.) Urine Test Negative (Negative) c-ANCA Titer (Neg:<1:20) titer p-ANCA Titer (Neg:<1:20) titer Atypical p-ANCA Titer (Neg:<1:20) titer Complement C3 (82-167) mg/dL Complement C4 (12-38) mg/dL SARS-CoV-2 (PCR) (Negative) Hepatitis A IgM Ab (Negative) Hep Bs Antigen (Negative) Hep B Core IgM Ab (Negative) Hepatitis C Antibody (0.0-0.9) s/co ratio Hep C Ab Signal/Cutoff (.) Ref Lab Notation (.) 04/03/22 04/03/22 04/03/22 Range/Units 17:40 21:41 21:50 WBC (4.5-11.0) X10^3/uL RBC (4.0-5.2) X10^6/uL Hgb (12.0-16.0) g/dL Hct (36-46) % MCV (80-100) fL MCH (26-34) PG MCHC (30-36) % RDW (11.6-14.8) % Plt Count (150-400) X10^3/uL Neut % (Auto) (50-75) % Lymph % (Auto) (25-40) % [place] % (Auto) (3-14) % Eos % (Auto) (2-4) % Baso % (Auto) (0-2) % Neut # (Auto) (7237-3846) /uL Lymph # (Auto) (1550-3863) /uL [place] # (Auto) (0-900) /uL Eos # (Auto) (0-450) /uL Baso # (Auto) (0-100) /uL Sodium 137 (137-145) mmol/L Potassium 4.8 (3.4-5.1) mmol/L Chloride 111 H (98-107) mmol/L Carbon Dioxide 15 L (22-32) mmol/L BUN 68 H (7-17) mg/dL Creatinine 5.93 H (0.52-1.04) mg/dL Estimated GFR 9 L (>60) mL/min BUN/Creatinine Ratio 11.5 (6-22) Glucose 91 (70-100) mg/dL Calcium 6.5 L (8.4-10.2) mg/dL Phosphorus 5.2 H (2.5-4.5) mg/dL Magnesium 2.0 (1.6-2.3) mg/dL Total Bilirubin 0.4 (0.2-1.3) mg/dL AST 17 (14-36) IU/L ALT 9 (<35) IU/L Alkaline Phosphatase 47 (38-126) U/L Total Protein 6.3 (6.3-8.2) g/dL Total Protein (PEP) (6.0-8.5) g/dL Albumin 3.4 L (3.5-5.0) g/dL Albumin (PEP) (2.9-4.4) g/dL Globulin 2.9 (1.7-4.1) g/dL Albumin/Globulin Ratio 1.2 (1.0-2.8) Albumin/Globulin (PEP) (0.7-1.7) Woowv-1-Wukiwelfp (0.0-0.4) g/dL Vbues-5-Aigcticqa (0.4-1.0) g/dL Beta Globulins (0.7-1.3) g/dL Gamma Globulins (0.4-1.8) g/dL Gamma Glob/Tot Protein (2.2-3.9) g/dL M-Celso (Not Observed) g/dL M-Celso % (Not Observed) % Urine Color Urine Appearance Urine pH (4.5-8.0) Ur Specific [place] (1.000-1.035) Urine Protein (Negative) Urine Glucose (UA) (Negative) g/dL Urine Ketones (NEGATIVE) Urine Occult Blood (Negative) Urine Nitrate (Negative) Urine Bilirubin (NEGATIVE) Urine Urobilinogen (0.2) E.U./dL Ur Leukocyte Esterase (NEGATIVE) Urine RBC (0-5/HPF) Urine WBC (0-5/HPF) Ur Squamous Epith Cells (0-5/HPF) Amorphous Sediment Urine Bacteria (None) Ur Culture Indicated? Urine Eosinophils TNP Urine Osmolality 347 (.) mOsmol/kg Ur Random Sodium (30-90) mmol/L Urine Creatinine mg/dL Urine Total Protein (Not Estab.) mg/dL Urine Albumin (.) % U Wbcpx-3-Jkcghbdw (.) % U Tigmp-3-Alvgzpum (.) % U Beta Globulin (.) % U Gamma Globulin (.) % Urine PEP Note (.) Urine Test (Negative) c-ANCA Titer (Neg:<1:20) titer p-ANCA Titer (Neg:<1:20) titer Atypical p-ANCA Titer (Neg:<1:20) titer Complement C3 (82-167) mg/dL Complement C4 (12-38) mg/dL SARS-CoV-2 (PCR) (Negative) Hepatitis A IgM Ab (Negative) Hep Bs Antigen (Negative) Hep B Core IgM Ab (Negative) Hepatitis C Antibody (0.0-0.9) s/co ratio Hep C Ab Signal/Cutoff (.) Ref Lab Notation (.) 04/04/22 04/04/22 04/04/22 Range/Units 01:47 01:47 08:00 WBC (4.5-11.0) X10^3/uL RBC (4.0-5.2) X10^6/uL Hgb 8.4 L (12.0-16.0) g/dL Hct 24.7 L (36-46) % MCV (80-100) fL MCH (26-34) PG MCHC (30-36) % RDW (11.6-14.8) % Plt Count (150-400) X10^3/uL Neut % (Auto) (50-75) % Lymph % (Auto) (25-40) % [place] % (Auto) (3-14) % Eos % (Auto) (2-4) % Baso % (Auto) (0-2) % Neut # (Auto) (0292-4738) /uL Lymph # (Auto) (8660-8396) /uL [place] # (Auto) (0-900) /uL Eos # (Auto) (0-450) /uL Baso # (Auto) (0-100) /uL Sodium (137-145) mmol/L Potassium (3.4-5.1) mmol/L Chloride (98-107) mmol/L Carbon Dioxide (22-32) mmol/L BUN (7-17) mg/dL Creatinine (0.52-1.04) mg/dL Estimated GFR (>60) mL/min BUN/Creatinine Ratio (6-22) Glucose (70-100) mg/dL Calcium (8.4-10.2) mg/dL Phosphorus (2.5-4.5) mg/dL Magnesium (1.6-2.3) mg/dL Total Bilirubin (0.2-1.3) mg/dL AST (14-36) IU/L ALT (<35) IU/L Alkaline Phosphatase (38-126) U/L Total Protein (6.3-8.2) g/dL Total Protein (PEP) 5.6 L (6.0-8.5) g/dL Albumin (3.5-5.0) g/dL Albumin (PEP) 3.0 (2.9-4.4) g/dL Globulin (1.7-4.1) g/dL Albumin/Globulin Ratio (1.0-2.8) Albumin/Globulin (PEP) 1.2 (0.7-1.7) Ftcyb-8-Gbssijkdv 0.2 (0.0-0.4) g/dL Gxecb-7-Zsqaevfzo 0.7 (0.4-1.0) g/dL Beta Globulins 0.9 (0.7-1.3) g/dL Gamma Globulins 0.9 (0.4-1.8) g/dL Gamma Glob/Tot Protein 2.6 (2.2-3.9) g/dL M-Celso Not observed (Not Observed) g/dL M-Celso % Not observed (Not Observed) % Urine Color Urine Appearance Urine pH (4.5-8.0) Ur Specific [place] (1.000-1.035) Urine Protein (Negative) Urine Glucose (UA) (Negative) g/dL Urine Ketones (NEGATIVE) Urine Occult Blood (Negative) Urine Nitrate (Negative) Urine Bilirubin (NEGATIVE) Urine Urobilinogen (0.2) E.U./dL Ur Leukocyte Esterase (NEGATIVE) Urine RBC (0-5/HPF) Urine WBC (0-5/HPF) Ur Squamous Epith Cells (0-5/HPF) Amorphous Sediment Urine Bacteria (None) Ur Culture Indicated? Urine Eosinophils Urine Osmolality (.) mOsmol/kg Ur Random Sodium (30-90) mmol/L Urine Creatinine mg/dL Urine Total Protein 144.9 (Not Estab.) mg/dL Urine Albumin 51.7 (.) % U Xmxup-1-Axnhfnvi 5.5 (.) % U Cdvpc-2-Dovzhwam 8.9 (.) % U Beta Globulin 19.6 (.) % U Gamma Globulin 14.4 (.) % Urine PEP Note Comment (.) Urine Test (Negative) c-ANCA Titer <1:20 (Neg:<1:20) titer p-ANCA Titer 1:160 H (Neg:<1:20) titer Atypical p-ANCA Titer <1:20 (Neg:<1:20) titer Complement C3 80 L (82-167) mg/dL Complement C4 21 (12-38) mg/dL SARS-CoV-2 (PCR) (Negative) Hepatitis A IgM Ab Negative (Negative) Hep Bs Antigen Negative (Negative) Hep B Core IgM Ab Negative (Negative) Hepatitis C Antibody <0.1 (0.0-0.9) s/co ratio Hep C Ab Signal/Cutoff Comment (.) Ref Lab Notation Comment (.) 04/04/22 04/04/22 04/05/22 Range/Units 08:00 08:18 05:56 WBC (4.5-11.0) X10^3/uL RBC (4.0-5.2) X10^6/uL Hgb (12.0-16.0) g/dL Hct (36-46) % MCV (80-100) fL MCH (26-34) PG MCHC (30-36) % RDW (11.6-14.8) % Plt Count (150-400) X10^3/uL Neut % (Auto) (50-75) % Lymph % (Auto) (25-40) % [place] % (Auto) (3-14) % Eos % (Auto) (2-4) % Baso % (Auto) (0-2) % Neut # (Auto) (3843-9941) /uL Lymph # (Auto) (2418-2186) /uL [place] # (Auto) (0-900) /uL Eos # (Auto) (0-450) /uL Baso # (Auto) (0-100) /uL Sodium 136 L 137 (137-145) mmol/L Potassium 4.7 4.6 (3.4-5.1) mmol/L Chloride 112 H 111 H (98-107) mmol/L Carbon Dioxide 16 L 17 L (22-32) mmol/L BUN 62 H 64 H (7-17) mg/dL Creatinine 5.76 H 6.25 H (0.52-1.04) mg/dL Estimated GFR 9 L 8 L (>60) mL/min BUN/Creatinine Ratio 10.8 10.2 (6-22) Glucose 85 84 (70-100) mg/dL Calcium 6.4 L* 6.9 L (8.4-10.2) mg/dL Phosphorus 5.3 H (2.5-4.5) mg/dL Magnesium (1.6-2.3) mg/dL Total Bilirubin (0.2-1.3) mg/dL AST (14-36) IU/L ALT (<35) IU/L Alkaline Phosphatase (38-126) U/L Total Protein (6.3-8.2) g/dL Total Protein (PEP) (6.0-8.5) g/dL Albumin 3.1 L (3.5-5.0) g/dL Albumin (PEP) (2.9-4.4) g/dL Globulin (1.7-4.1) g/dL Albumin/Globulin Ratio (1.0-2.8) Albumin/Globulin (PEP) (0.7-1.7) Uydmw-7-Ifbxucocz (0.0-0.4) g/dL Niqql-7-Xhzvtebot (0.4-1.0) g/dL Beta Globulins (0.7-1.3) g/dL Gamma Globulins (0.4-1.8) g/dL Gamma Glob/Tot Protein (2.2-3.9) g/dL M-Celso (Not Observed) g/dL M-Celso % (Not Observed) % Urine Color Urine Appearance Urine pH (4.5-8.0) Ur Specific [place] (1.000-1.035) Urine Protein (Negative) Urine Glucose (UA) (Negative) g/dL Urine Ketones (NEGATIVE) Urine Occult Blood (Negative) Urine Nitrate (Negative) Urine Bilirubin (NEGATIVE) Urine Urobilinogen (0.2) E.U./dL Ur Leukocyte Esterase (NEGATIVE) Urine RBC (0-5/HPF) Urine WBC (0-5/HPF) Ur Squamous Epith Cells (0-5/HPF) Amorphous Sediment Urine Bacteria (None) Ur Culture Indicated? Urine Eosinophils Urine Osmolality (.) mOsmol/kg Ur Random Sodium (30-90) mmol/L Urine Creatinine mg/dL Urine Total Protein (Not Estab.) mg/dL Urine Albumin (.) % U Qpvkd-1-Cqxxfarl (.) % U Aojjc-3-Bjpmdfzg (.) % U Beta Globulin (.) % U Gamma Globulin (.) % Urine PEP Note (.) Urine Test (Negative) c-ANCA Titer (Neg:<1:20) titer p-ANCA Titer (Neg:<1:20) titer Atypical p-ANCA Titer (Neg:<1:20) titer Complement C3 (82-167) mg/dL Complement C4 (12-38) mg/dL SARS-CoV-2 (PCR) (Negative) Hepatitis A IgM Ab (Negative) Hep Bs Antigen (Negative) Hep B Core IgM Ab (Negative) Hepatitis C Antibody (0.0-0.9) s/co ratio Hep C Ab Signal/Cutoff (.) Ref Lab Notation (.) 04/05/22 04/05/22 Range/Units 13:40 16:40 WBC (4.5-11.0) X10^3/uL RBC (4.0-5.2) X10^6/uL Hgb (12.0-16.0) g/dL Hct (36-46) % MCV (80-100) fL MCH (26-34) PG MCHC (30-36) % RDW (11.6-14.8) % Plt Count (150-400) X10^3/uL Neut % (Auto) (50-75) % Lymph % (Auto) (25-40) % [place] % (Auto) (3-14) % Eos % (Auto) (2-4) % Baso % (Auto) (0-2) % Neut # (Auto) (7010-0979) /uL Lymph # (Auto) (4381-0590) /uL [place] # (Auto) (0-900) /uL Eos # (Auto) (0-450) /uL Baso # (Auto) (0-100) /uL Sodium 136 L (137-145) mmol/L Potassium 5.1 (3.4-5.1) mmol/L Chloride 113 H (98-107) mmol/L Carbon Dioxide 17 L (22-32) mmol/L BUN 61 H (7-17) mg/dL Creatinine 6.02 H (0.52-1.04) mg/dL Estimated GFR 9 L (>60) mL/min BUN/Creatinine Ratio 10.1 (6-22) Glucose 142 H (70-100) mg/dL Calcium 6.5 L (8.4-10.2) mg/dL Phosphorus (2.5-4.5) mg/dL Magnesium (1.6-2.3) mg/dL Total Bilirubin 0.2 (0.2-1.3) mg/dL AST 13 L (14-36) IU/L ALT 8 (<35) IU/L Alkaline Phosphatase 52 (38-126) U/L Total Protein 6.1 L (6.3-8.2) g/dL Total Protein (PEP) (6.0-8.5) g/dL Albumin 3.1 L (3.5-5.0) g/dL Albumin (PEP) (2.9-4.4) g/dL Globulin 3.0 (1.7-4.1) g/dL Albumin/Globulin Ratio 1.0 (1.0-2.8) Albumin/Globulin (PEP) (0.7-1.7) Nohmh-5-Oukkbmrfr (0.0-0.4) g/dL Yqhmt-6-Acggmgzup (0.4-1.0) g/dL Beta Globulins (0.7-1.3) g/dL Gamma Globulins (0.4-1.8) g/dL Gamma Glob/Tot Protein (2.2-3.9) g/dL M-Celso (Not Observed) g/dL M-[place] % (Not Observed) % Urine Color Other Urine Appearance Sl cloudy Urine pH 6.0 (4.5-8.0) Ur Specific [place] 1.010 (1.000-1.035) Urine Protein 2+ H (Negative) Urine Glucose (UA) Trace H (Negative) g/dL Urine Ketones Negative (NEGATIVE) Urine Occult Blood 3+ H (Negative) Urine Nitrate Negative (Negative) Urine Bilirubin Negative (NEGATIVE) Urine Urobilinogen 0.2 (0.2) E.U./dL Ur Leukocyte Esterase Negative (NEGATIVE) Urine RBC >100/hpf H (0-5/HPF) Urine WBC 1-5/hpf (0-5/HPF) Ur Squamous Epith Cells 1-5 /hpf (0-5/HPF) Amorphous Sediment 1+ Urine Bacteria Few (2-10) H (None) Ur Culture Indicated? Specimen cultured Urine Eosinophils Urine Osmolality (.) mOsmol/kg Ur Random Sodium (30-90) mmol/L Urine Creatinine mg/dL Urine Total Protein (Not Estab.) mg/dL Urine Albumin (.) % U Ruaad-8-Wugrcaco (.) % U Ndrgf-8-Lcejqyqm (.) % U Beta Globulin (.) % U Gamma Globulin (.) % Urine PEP Note (.) Urine Test (Negative) c-ANCA Titer (Neg:<1:20) titer p-ANCA Titer (Neg:<1:20) titer Atypical p-ANCA Titer (Neg:<1:20) titer Complement C3 (82-167) mg/dL Complement C4 (12-38) mg/dL SARS-CoV-2 (PCR) (Negative) Hepatitis A IgM Ab (Negative) Hep Bs Antigen (Negative) Hep B Core IgM Ab (Negative) Hepatitis C Antibody (0.0-0.9) s/co ratio Hep C Ab Signal/Cutoff (.) Ref Lab Notation (.) Imaging Data CT scan - abdomen/pelvis: Radiologist's Impression: Close Abdomen/Pelvis CT (Signed) Mil Irizarry - 04/03/22 Renal Ultrasound (Signed) Darya Garcia - 04/03/22 [place] [address] CT Scan Report Signed Patient: Betty Brock MR#: [id number] : 1985 Acct:[id number] Age/Sex: 36 / F Date of Service: 04/03/22 Loc: ED Accession Number: [id number] ?? Procedure: CT kidney ureter bladder (KUB) Ordering Provider: Debbie Donahue D.O. PROCEDURE:? CT KIDNEY URETER BLADDER (KUB) ? INDICATIONS:? renal failure ? TECHNIQUE:? Axial sections were acquired from the lung bases to the pubic symphysis.? Coronal and sagittal reformats were performed.? For radiation dose reduction, the following was used: ?automated exposure control, adjustment of mA and/or kV according to patient size.? ? COMPARISON:? None. ? FINDINGS:? Image quality:? Excellent.? ? Lung bases:? There is minimal atelectasis.? ? Heart:? Heart is normal in size. ? URINARY: Right Kidney and Ureter: ? No stones or hydronephrosis.? No hydroureter.? ? Left Kidney and Ureter: ? No stones or hydronephrosis.? No hydroureter. ? Bladder:? Normal wall thickness. No stones. ? ? ? ABDOMEN: Liver:? Noncontrast evaluation of the liver demonstrates no discrete? mass. Gallbladder:? Within normal limits without calcified gallstones.? ? Biliary ducts:? No biliary ductal dilatation.? ? Pancreas:? Unremarkable.? ? Spleen:? Normal in size.? ? Adrenal Glands:? No adrenal nodules.? ? ? Stomach and Bowel:? Stomach, small bowel loops, and colon are normal in caliber and wall thickness.? The appendix is normal in appearance.? There is colonic diverticulosis without acute diverticulitis.? Peritoneum:? No abnormal intraperitoneal fluid.? No free air.? ? Ventral Wall: ? No hernia.? Abdominal Nodes:? No retroperitoneal or mesenteric adenopathy by size criteria.? Vessels:? Aorta and inferior vena cava are normal in size.? ? PELVIS: Pelvic Organs:? An IUD appears in appropriate position within the uterus.? There is a thin thin walled cyst within the left hemipelvis measuring up to 4.2 x 3.7 cm with a soft tissue rind suggestive of a physiologic ovarian cyst.? ? Pelvic Nodes: No enlarged lymph nodes.? Miscellaneous: No inguinal hernias identified. ? ? ? Bones:? Visualized osseous structures demonstrate no suspicious focal lesions. IMPRESSION:? ? 1. No evidence of hydronephrosis. ? 2. Left adnexal cyst measuring up to 4.2 cm.? The findings are nonspecific but likely represents a physiologic cyst.? Consider follow-up pelvic ultrasound to demonstrate resolution in 6 weeks if clinically indicated.? ? ? Dictated by: Mil Irizarry M.D. on 04/03/2022 at 21:24 ? ? Approved by: Mil Irizarry M.D. on 04/03/2022 at 21:27?? [facility] Narrative Medical decision making narrative: Rowan 04/03/22 2215: Reviewed patient's labs, plan to repeat her renal function and electrolytes, CT findings today, we were able to rule out some causes of her symptoms but not all inner currently working her up. She is no complaints or concerns currently. Patient's renal function mildly improved with a creatinine of 5, no hyperkalemia. CT does not show any other acute changes as well she is have a left adnexal cyst. Findings were discussed with the patient. Plan to continue monitor, strict I's and O's, fluids were changed and are continuing at 100 mL/hour and patient has been urinating regularly. Discussed with Dr. Granados with Nephrology in [place] who recommends evaluating further for vasculitis and recommendations are included above and labs ordered based on his recommendations. If patient's creatinine continues to improve and she is urinating regularly there is potential for outpatient follow-up but if her creatinine continues in the 4-5 range bullet clear still need transfer for renal biopsy. [facility] refused. Patient on [facility] list secondary to no regional bed availability. Patient signed out to Dr. Portillo while awaiting possible transfer, am labs at 0800 and gentle fluids. [0700] (Bandar) Patient received in sign out from [Rowan]. I have reviewed the clinical course overnight. Repeat labs ordered. Patient feeling relatively well. 04/04/22: Patient had no events overnight. Continues to have creatinine in 4-5 range no significant electrolyte abnormalities. Nephrology had suggested that patient needs transfer for any in a biopsy if it stays at this level she has been continuing to make urine. Signed out to Dr. Cruz for day shift. There are significant and Critical bed shortages currently in the region and unlikely for patient to be transferred in the next several days. Likely plan for reconsult with Nephrology to see if patient can be seen as outpatient urgently or if needs to continue to board in the department until transfer can be accomplished. The patient arrived 2 days ago with renal failure. She has been followed at the [facility]. Her creatinine was 1.6 29 September 2021, increased to 5.76 when seen here. There were multiple associated electrolyte abnormalities. She has significant anemia, likely associated with renal failure. Her H/H was normal . Initial nephrology consultation suggested transfer to an appropriate facility for nephrology consult and renal biopsy. Transfer remains extremely unlikely. She has been hydrated for 2 days. Oral intake is good. She has excellent urine output. It is noted she has hematuria, no pyuria. She has not been on NSAIDs, she is on no meds. She is not menstruating. Her situation was discussed again with Nephrology, Dr. Logan at [facility]. The patient has no concerns about going home, other than generalized statement of not feeling well she has no specific concerning complaints. Dr. Logan has graciously provided the patient with an appointment in 3 days, noon on 04/08/22. Rather than waiting on an indefinite transfer, she now has dedicated follow-up with nephrology Friday morning.-Christiano DUFF 04/07/22@16:20. <Ammon Cruz MD - Last Filed: 04/05/22 19:37> Lab Data Labs: Lab Results 04/03/22 04/03/22 04/03/22 Range/Units 16:11 16:11 16:25 WBC 5.2 (4.5-11.0) X10^3/uL RBC 2.93 L (4.0-5.2) X10^6/uL Hgb 9.1 L (12.0-16.0) g/dL Hct 26.1 L (36-46) % MCV 89.3 (80-100) fL MCH 31.0 (26-34) PG MCHC 34.7 (30-36) % RDW 13.9 (11.6-14.8) % Plt Count 202 (150-400) X10^3/uL Neut % (Auto) 64.9 (50-75) % Lymph % (Auto) 25.1 (25-40) % [place] % (Auto) 7.4 (3-14) % Eos % (Auto) 1.6 L (2-4) % Baso % (Auto) 1.0 (0-2) % Neut # (Auto) 3400 (7058-4535) /uL Lymph # (Auto) 1300 (9411-2212) /uL [place] # (Auto) 400 (0-900) /uL Eos # (Auto) 100 (0-450) /uL Baso # (Auto) 0 (0-100) /uL Sodium 137 (137-145) mmol/L Potassium 5.0 (3.4-5.1) mmol/L Chloride 108 H (98-107) mmol/L Carbon Dioxide 18 L (22-32) mmol/L BUN 71 H (7-17) mg/dL Creatinine 6.46 H (0.52-1.04) mg/dL Estimated GFR 8 L (>60) mL/min BUN/Creatinine Ratio 11.0 (6-22) Glucose 94 (70-100) mg/dL Calcium 7.0 L (8.4-10.2) mg/dL Phosphorus (2.5-4.5) mg/dL Magnesium (1.6-2.3) mg/dL Total Bilirubin (0.2-1.3) mg/dL AST (14-36) IU/L ALT (<35) IU/L Alkaline Phosphatase (38-126) U/L Total Protein (6.3-8.2) g/dL Total Protein (PEP) (6.0-8.5) g/dL Albumin (3.5-5.0) g/dL Albumin (PEP) (2.9-4.4) g/dL Globulin (1.7-4.1) g/dL Albumin/Globulin Ratio (1.0-2.8) Albumin/Globulin (PEP) (0.7-1.7) Nmyov-3-Htxhgzhhm (0.0-0.4) g/dL Pbjej-8-Ytehirpbo (0.4-1.0) g/dL Beta Globulins (0.7-1.3) g/dL Gamma Globulins (0.4-1.8) g/dL Gamma Glob/Tot Protein (2.2-3.9) g/dL M-Celso (Not Observed) g/dL M-Celso % (Not Observed) % Urine Color Urine Appearance Urine pH (4.5-8.0) Ur Specific [place] (1.000-1.035) Urine Protein (Negative) Urine Glucose (UA) (Negative) g/dL Urine Ketones (NEGATIVE) Urine Occult Blood (Negative) Urine Nitrate (Negative) Urine Bilirubin (NEGATIVE) Urine Urobilinogen (0.2) E.U./dL Ur Leukocyte Esterase (NEGATIVE) Urine RBC (0-5/HPF) Urine WBC (0-5/HPF) Ur Squamous Epith Cells (0-5/HPF) Amorphous Sediment Urine Bacteria (None) Ur Culture Indicated? Urine Eosinophils Urine Osmolality (.) mOsmol/kg Ur Random Sodium (30-90) mmol/L Urine Creatinine mg/dL Urine Total Protein (Not Estab.) mg/dL Urine Albumin (.) % U Ljqid-6-Pqnsqulf (.) % U Jdnbl-4-Qritrkid (.) % U Beta Globulin (.) % U Gamma Globulin (.) % Urine PEP Note (.) Urine Test (Negative) c-ANCA Titer (Neg:<1:20) titer p-ANCA Titer (Neg:<1:20) titer Atypical p-ANCA Titer (Neg:<1:20) titer Complement C3 (82-167) mg/dL Complement C4 (12-38) mg/dL SARS-CoV-2 (PCR) Negative (Negative) Hepatitis A IgM Ab (Negative) Hep Bs Antigen (Negative) Hep B Core IgM Ab (Negative) Hepatitis C Antibody (0.0-0.9) s/co ratio Hep C Ab Signal/Cutoff (.) Ref Lab Notation (.) 04/03/22 04/03/22 04/03/22 Range/Units 17:40 17:40 17:40 WBC (4.5-11.0) X10^3/uL RBC (4.0-5.2) X10^6/uL Hgb (12.0-16.0) g/dL Hct (36-46) % MCV (80-100) fL MCH (26-34) PG MCHC (30-36) % RDW (11.6-14.8) % Plt Count (150-400) X10^3/uL Neut % (Auto) (50-75) % Lymph % (Auto) (25-40) % [place] % (Auto) (3-14) % Eos % (Auto) (2-4) % Baso % (Auto) (0-2) % Neut # (Auto) (3293-3326) /uL Lymph # (Auto) (2907-5093) /uL [place] # (Auto) (0-900) /uL Eos # (Auto) (0-450) /uL Baso # (Auto) (0-100) /uL Sodium (137-145) mmol/L Potassium (3.4-5.1) mmol/L Chloride (98-107) mmol/L Carbon Dioxide (22-32) mmol/L BUN (7-17) mg/dL Creatinine (0.52-1.04) mg/dL Estimated GFR (>60) mL/min BUN/Creatinine Ratio (6-22) Glucose (70-100) mg/dL Calcium (8.4-10.2) mg/dL Phosphorus (2.5-4.5) mg/dL Magnesium (1.6-2.3) mg/dL Total Bilirubin (0.2-1.3) mg/dL AST (14-36) IU/L ALT (<35) IU/L Alkaline Phosphatase (38-126) U/L Total Protein (6.3-8.2) g/dL Total Protein (PEP) (6.0-8.5) g/dL Albumin (3.5-5.0) g/dL Albumin (PEP) (2.9-4.4) g/dL Globulin (1.7-4.1) g/dL Albumin/Globulin Ratio (1.0-2.8) Albumin/Globulin (PEP) (0.7-1.7) Iqfma-7-Hxbehlgzt (0.0-0.4) g/dL Lykze-7-Cnkmfutjk (0.4-1.0) g/dL Beta Globulins (0.7-1.3) g/dL Gamma Globulins (0.4-1.8) g/dL Gamma Glob/Tot Protein (2.2-3.9) g/dL M-Celso (Not Observed) g/dL M-Celso % (Not Observed) % Urine Color Other Urine Appearance Sl cloudy Urine pH 6.5 (4.5-8.0) Ur Specific [place] 1.010 (1.000-1.035) Urine Protein 3+ H (Negative) Urine Glucose (UA) Negative (Negative) g/dL Urine Ketones Negative (NEGATIVE) Urine Occult Blood 3+ H (Negative) Urine Nitrate Negative (Negative) Urine Bilirubin Negative (NEGATIVE) Urine Urobilinogen 0.2 (0.2) E.U./dL Ur Leukocyte Esterase Negative (NEGATIVE) Urine RBC >100/hpf H (0-5/HPF) Urine WBC 1-5/hpf (0-5/HPF) Ur Squamous Epith Cells 0-1 /hpf (0-5/HPF) Amorphous Sediment 1+ Urine Bacteria Occasional (0-1) (None) Ur Culture Indicated? Specimen cultured Urine Eosinophils Urine Osmolality (.) mOsmol/kg Ur Random Sodium 83 (30-90) mmol/L Urine Creatinine 57.0 mg/dL Urine Total Protein (Not Estab.) mg/dL Urine Albumin (.) % U Utgde-1-Wymubjoa (.) % U Chqaj-4-Sqmbyxod (.) % U Beta Globulin (.) % U Gamma Globulin (.) % Urine PEP Note (.) Urine Test Negative (Negative) c-ANCA Titer (Neg:<1:20) titer p-ANCA Titer (Neg:<1:20) titer Atypical p-ANCA Titer (Neg:<1:20) titer Complement C3 (82-167) mg/dL Complement C4 (12-38) mg/dL SARS-CoV-2 (PCR) (Negative) Hepatitis A IgM Ab (Negative) Hep Bs Antigen (Negative) Hep B Core IgM Ab (Negative) Hepatitis C Antibody (0.0-0.9) s/co ratio Hep C Ab Signal/Cutoff (.) Ref Lab Notation (.) 04/03/22 04/03/22 04/03/22 Range/Units 17:40 21:41 21:50 WBC (4.5-11.0) X10^3/uL RBC (4.0-5.2) X10^6/uL Hgb (12.0-16.0) g/dL Hct (36-46) % MCV (80-100) fL MCH (26-34) PG MCHC (30-36) % RDW (11.6-14.8) % Plt Count (150-400) X10^3/uL Neut % (Auto) (50-75) % Lymph % (Auto) (25-40) % [place] % (Auto) (3-14) % Eos % (Auto) (2-4) % Baso % (Auto) (0-2) % Neut # (Auto) (6085-2704) /uL Lymph # (Auto) (4884-0943) /uL [place] # (Auto) (0-900) /uL Eos # (Auto) (0-450) /uL Baso # (Auto) (0-100) /uL Sodium 137 (137-145) mmol/L Potassium 4.8 (3.4-5.1) mmol/L Chloride 111 H (98-107) mmol/L Carbon Dioxide 15 L (22-32) mmol/L BUN 68 H (7-17) mg/dL Creatinine 5.93 H (0.52-1.04) mg/dL Estimated GFR 9 L (>60) mL/min BUN/Creatinine Ratio 11.5 (6-22) Glucose 91 (70-100) mg/dL Calcium 6.5 L (8.4-10.2) mg/dL Phosphorus 5.2 H (2.5-4.5) mg/dL Magnesium 2.0 (1.6-2.3) mg/dL Total Bilirubin 0.4 (0.2-1.3) mg/dL AST 17 (14-36) IU/L ALT 9 (<35) IU/L Alkaline Phosphatase 47 (38-126) U/L Total Protein 6.3 (6.3-8.2) g/dL Total Protein (PEP) (6.0-8.5) g/dL Albumin 3.4 L (3.5-5.0) g/dL Albumin (PEP) (2.9-4.4) g/dL Globulin 2.9 (1.7-4.1) g/dL Albumin/Globulin Ratio 1.2 (1.0-2.8) Albumin/Globulin (PEP) (0.7-1.7) Nawhd-8-Xqklnxpdj (0.0-0.4) g/dL Imbvn-8-Wznrkipyh (0.4-1.0) g/dL Beta Globulins (0.7-1.3) g/dL Gamma Globulins (0.4-1.8) g/dL Gamma Glob/Tot Protein (2.2-3.9) g/dL M-Celso (Not Observed) g/dL M-Celso % (Not Observed) % Urine Color Urine Appearance Urine pH (4.5-8.0) Ur Specific [place] (1.000-1.035) Urine Protein (Negative) Urine Glucose (UA) (Negative) g/dL Urine Ketones (NEGATIVE) Urine Occult Blood (Negative) Urine Nitrate (Negative) Urine Bilirubin (NEGATIVE) Urine Urobilinogen (0.2) E.U./dL Ur Leukocyte Esterase (NEGATIVE) Urine RBC (0-5/HPF) Urine WBC (0-5/HPF) Ur Squamous Epith Cells (0-5/HPF) Amorphous Sediment Urine Bacteria (None) Ur Culture Indicated? Urine Eosinophils TNP Urine Osmolality 347 (.) mOsmol/kg Ur Random Sodium (30-90) mmol/L Urine Creatinine mg/dL Urine Total Protein (Not Estab.) mg/dL Urine Albumin (.) % U Vkxxq-0-Ffnqwyqe (.) % U Mocad-1-Qnrybwhc (.) % U Beta Globulin (.) % U Gamma Globulin (.) % Urine PEP Note (.) Urine Test (Negative) c-ANCA Titer (Neg:<1:20) titer p-ANCA Titer (Neg:<1:20) titer Atypical p-ANCA Titer (Neg:<1:20) titer Complement C3 (82-167) mg/dL Complement C4 (12-38) mg/dL SARS-CoV-2 (PCR) (Negative) Hepatitis A IgM Ab (Negative) Hep Bs Antigen (Negative) Hep B Core IgM Ab (Negative) Hepatitis C Antibody (0.0-0.9) s/co ratio Hep C Ab Signal/Cutoff (.) Ref Lab Notation (.) 04/04/22 04/04/22 04/04/22 Range/Units 01:47 01:47 08:00 WBC (4.5-11.0) X10^3/uL RBC (4.0-5.2) X10^6/uL Hgb 8.4 L (12.0-16.0) g/dL Hct 24.7 L (36-46) % MCV (80-100) fL MCH (26-34) PG MCHC (30-36) % RDW (11.6-14.8) % Plt Count (150-400) X10^3/uL Neut % (Auto) (50-75) % Lymph % (Auto) (25-40) % [place] % (Auto) (3-14) % Eos % (Auto) (2-4) % Baso % (Auto) (0-2) % Neut # (Auto) (5370-5651) /uL Lymph # (Auto) (9954-4881) /uL [place] # (Auto) (0-900) /uL Eos # (Auto) (0-450) /uL Baso # (Auto) (0-100) /uL Sodium (137-145) mmol/L Potassium (3.4-5.1) mmol/L Chloride (98-107) mmol/L Carbon Dioxide (22-32) mmol/L BUN (7-17) mg/dL Creatinine (0.52-1.04) mg/dL Estimated GFR (>60) mL/min BUN/Creatinine Ratio (6-22) Glucose (70-100) mg/dL Calcium (8.4-10.2) mg/dL Phosphorus (2.5-4.5) mg/dL Magnesium (1.6-2.3) mg/dL Total Bilirubin (0.2-1.3) mg/dL AST (14-36) IU/L ALT (<35) IU/L Alkaline Phosphatase (38-126) U/L Total Protein (6.3-8.2) g/dL Total Protein (PEP) 5.6 L (6.0-8.5) g/dL Albumin (3.5-5.0) g/dL Albumin (PEP) 3.0 (2.9-4.4) g/dL Globulin (1.7-4.1) g/dL Albumin/Globulin Ratio (1.0-2.8) Albumin/Globulin (PEP) 1.2 (0.7-1.7) Ihlka-5-Wxyosidmo 0.2 (0.0-0.4) g/dL Cdstx-6-Uraghifjf 0.7 (0.4-1.0) g/dL Beta Globulins 0.9 (0.7-1.3) g/dL Gamma Globulins 0.9 (0.4-1.8) g/dL Gamma Glob/Tot Protein 2.6 (2.2-3.9) g/dL M-Celso Not observed (Not Observed) g/dL M-Celso % Not observed (Not Observed) % Urine Color Urine Appearance Urine pH (4.5-8.0) Ur Specific [place] (1.000-1.035) Urine Protein (Negative) Urine Glucose (UA) (Negative) g/dL Urine Ketones (NEGATIVE) Urine Occult Blood (Negative) Urine Nitrate (Negative) Urine Bilirubin (NEGATIVE) Urine Urobilinogen (0.2) E.U./dL Ur Leukocyte Esterase (NEGATIVE) Urine RBC (0-5/HPF) Urine WBC (0-5/HPF) Ur Squamous Epith Cells (0-5/HPF) Amorphous Sediment Urine Bacteria (None) Ur Culture Indicated? Urine Eosinophils Urine Osmolality (.) mOsmol/kg Ur Random Sodium (30-90) mmol/L Urine Creatinine mg/dL Urine Total Protein 144.9 (Not Estab.) mg/dL Urine Albumin 51.7 (.) % U Agknq-4-Oaohudlx 5.5 (.) % U Ypucs-2-Dxhylhnl 8.9 (.) % U Beta Globulin 19.6 (.) % U Gamma Globulin 14.4 (.) % Urine PEP Note Comment (.) Urine Test (Negative) c-ANCA Titer <1:20 (Neg:<1:20) titer p-ANCA Titer 1:160 H (Neg:<1:20) titer Atypical p-ANCA Titer <1:20 (Neg:<1:20) titer Complement C3 80 L (82-167) mg/dL Complement C4 21 (12-38) mg/dL SARS-CoV-2 (PCR) (Negative) Hepatitis A IgM Ab Negative (Negative) Hep Bs Antigen Negative (Negative) Hep B Core IgM Ab Negative (Negative) Hepatitis C Antibody <0.1 (0.0-0.9) s/co ratio Hep C Ab Signal/Cutoff Comment (.) Ref Lab Notation Comment (.) 04/04/22 04/04/22 04/05/22 Range/Units 08:00 08:18 05:56 WBC (4.5-11.0) X10^3/uL RBC (4.0-5.2) X10^6/uL Hgb (12.0-16.0) g/dL Hct (36-46) % MCV (80-100) fL MCH (26-34) PG MCHC (30-36) % RDW (11.6-14.8) % Plt Count (150-400) X10^3/uL Neut % (Auto) (50-75) % Lymph % (Auto) (25-40) % [place] % (Auto) (3-14) % Eos % (Auto) (2-4) % Baso % (Auto) (0-2) % Neut # (Auto) (7875-1292) /uL Lymph # (Auto) (9534-9284) /uL [place] # (Auto) (0-900) /uL Eos # (Auto) (0-450) /uL Baso # (Auto) (0-100) /uL Sodium 136 L 137 (137-145) mmol/L Potassium 4.7 4.6 (3.4-5.1) mmol/L Chloride 112 H 111 H (98-107) mmol/L Carbon Dioxide 16 L 17 L (22-32) mmol/L BUN 62 H 64 H (7-17) mg/dL Creatinine 5.76 H 6.25 H (0.52-1.04) mg/dL Estimated GFR 9 L 8 L (>60) mL/min BUN/Creatinine Ratio 10.8 10.2 (6-22) Glucose 85 84 (70-100) mg/dL Calcium 6.4 L* 6.9 L (8.4-10.2) mg/dL Phosphorus 5.3 H (2.5-4.5) mg/dL Magnesium (1.6-2.3) mg/dL Total Bilirubin (0.2-1.3) mg/dL AST (14-36) IU/L ALT (<35) IU/L Alkaline Phosphatase (38-126) U/L Total Protein (6.3-8.2) g/dL Total Protein (PEP) (6.0-8.5) g/dL Albumin 3.1 L (3.5-5.0) g/dL Albumin (PEP) (2.9-4.4) g/dL Globulin (1.7-4.1) g/dL Albumin/Globulin Ratio (1.0-2.8) Albumin/Globulin (PEP) (0.7-1.7) Ernye-9-Wxzpiphsq (0.0-0.4) g/dL Shufc-7-Qrbdnkynn (0.4-1.0) g/dL Beta Globulins (0.7-1.3) g/dL Gamma Globulins (0.4-1.8) g/dL Gamma Glob/Tot Protein (2.2-3.9) g/dL M-Celso (Not Observed) g/dL M-Celso % (Not Observed) % Urine Color Urine Appearance Urine pH (4.5-8.0) Ur Specific [place] (1.000-1.035) Urine Protein (Negative) Urine Glucose (UA) (Negative) g/dL Urine Ketones (NEGATIVE) Urine Occult Blood (Negative) Urine Nitrate (Negative) Urine Bilirubin (NEGATIVE) Urine Urobilinogen (0.2) E.U./dL Ur Leukocyte Esterase (NEGATIVE) Urine RBC (0-5/HPF) Urine WBC (0-5/HPF) Ur Squamous Epith Cells (0-5/HPF) Amorphous Sediment Urine Bacteria (None) Ur Culture Indicated? Urine Eosinophils Urine Osmolality (.) mOsmol/kg Ur Random Sodium (30-90) mmol/L Urine Creatinine mg/dL Urine Total Protein (Not Estab.) mg/dL Urine Albumin (.) % U Nixkf-5-Lzawmskv (.) % U Uahix-1-Ygjrxvye (.) % U Beta Globulin (.) % U Gamma Globulin (.) % Urine PEP Note (.) Urine Test (Negative) c-ANCA Titer (Neg:<1:20) titer p-ANCA Titer (Neg:<1:20) titer Atypical p-ANCA Titer (Neg:<1:20) titer Complement C3 (82-167) mg/dL Complement C4 (12-38) mg/dL SARS-CoV-2 (PCR) (Negative) Hepatitis A IgM Ab (Negative) Hep Bs Antigen (Negative) Hep B Core IgM Ab (Negative) Hepatitis C Antibody (0.0-0.9) s/co ratio Hep C Ab Signal/Cutoff (.) Ref Lab Notation (.) 04/05/22 04/05/22 Range/Units 13:40 16:40 WBC (4.5-11.0) X10^3/uL RBC (4.0-5.2) X10^6/uL Hgb (12.0-16.0) g/dL Hct (36-46) % MCV (80-100) fL MCH (26-34) PG MCHC (30-36) % RDW (11.6-14.8) % Plt Count (150-400) X10^3/uL Neut % (Auto) (50-75) % Lymph % (Auto) (25-40) % [place] % (Auto) (3-14) % Eos % (Auto) (2-4) % Baso % (Auto) (0-2) % Neut # (Auto) (5873-0511) /uL Lymph # (Auto) (0242-7352) /uL [place] # (Auto) (0-900) /uL Eos # (Auto) (0-450) /uL Baso # (Auto) (0-100) /uL Sodium 136 L (137-145) mmol/L Potassium 5.1 (3.4-5.1) mmol/L Chloride 113 H (98-107) mmol/L Carbon Dioxide 17 L (22-32) mmol/L BUN 61 H (7-17) mg/dL Creatinine 6.02 H (0.52-1.04) mg/dL Estimated GFR 9 L (>60) mL/min BUN/Creatinine Ratio 10.1 (6-22) Glucose 142 H (70-100) mg/dL Calcium 6.5 L (8.4-10.2) mg/dL Phosphorus (2.5-4.5) mg/dL Magnesium (1.6-2.3) mg/dL Total Bilirubin 0.2 (0.2-1.3) mg/dL AST 13 L (14-36) IU/L ALT 8 (<35) IU/L Alkaline Phosphatase 52 (38-126) U/L Total Protein 6.1 L (6.3-8.2) g/dL Total Protein (PEP) (6.0-8.5) g/dL Albumin 3.1 L (3.5-5.0) g/dL Albumin (PEP) (2.9-4.4) g/dL Globulin 3.0 (1.7-4.1) g/dL Albumin/Globulin Ratio 1.0 (1.0-2.8) Albumin/Globulin (PEP) (0.7-1.7) Dzdrv-8-Cinuysnra (0.0-0.4) g/dL Ibayd-2-Ampxvsbcy (0.4-1.0) g/dL Beta Globulins (0.7-1.3) g/dL Gamma Globulins (0.4-1.8) g/dL Gamma Glob/Tot Protein (2.2-3.9) g/dL M-Celso (Not Observed) g/dL M-Celso % (Not Observed) % Urine Color Other Urine Appearance Sl cloudy Urine pH 6.0 (4.5-8.0) Ur Specific [place] 1.010 (1.000-1.035) Urine Protein 2+ H (Negative) Urine Glucose (UA) Trace H (Negative) g/dL Urine Ketones Negative (NEGATIVE) Urine Occult Blood 3+ H (Negative) Urine Nitrate Negative (Negative) Urine Bilirubin Negative (NEGATIVE) Urine Urobilinogen 0.2 (0.2) E.U./dL Ur Leukocyte Esterase Negative (NEGATIVE) Urine RBC >100/hpf H (0-5/HPF) Urine WBC 1-5/hpf (0-5/HPF) Ur Squamous Epith Cells 1-5 /hpf (0-5/HPF) Amorphous Sediment 1+ Urine Bacteria Few (2-10) H (None) Ur Culture Indicated? Specimen cultured Urine Eosinophils Urine Osmolality (.) mOsmol/kg Ur Random Sodium (30-90) mmol/L Urine Creatinine mg/dL Urine Total Protein (Not Estab.) mg/dL Urine Albumin (.) % U Tpfph-9-Kjuvkghj (.) % U Aszva-9-Cvcelmxr (.) % U Beta Globulin (.) % U Gamma Globulin (.) % Urine PEP Note (.) Urine Test (Negative) c-ANCA Titer (Neg:<1:20) titer p-ANCA Titer (Neg:<1:20) titer Atypical p-ANCA Titer (Neg:<1:20) titer Complement C3 (82-167) mg/dL Complement C4 (12-38) mg/dL SARS-CoV-2 (PCR) (Negative) Hepatitis A IgM Ab (Negative) Hep Bs Antigen (Negative) Hep B Core IgM Ab (Negative) Hepatitis C Antibody (0.0-0.9) s/co ratio Hep C Ab Signal/Cutoff (.) Ref Lab Notation (.) [facility] Narrative Medical decision making narrative: Rowan 04/03/22 [id number]: Reviewed patient's labs, plan to repeat her renal function and electrolytes, CT findings today, we were able to rule out some causes of her symptoms but not all inner currently working her up. She is no complaints or concerns currently. Patient's renal function mildly improved with a creatinine of 5, no hyperkalemia. CT does not show any other acute changes as well she is have a left adnexal cyst. Findings were discussed with the patient. Plan to continue monitor, strict I's and O's, fluids were changed and are continuing at 100 mL/hour and patient has been urinating regularly. Discussed with Dr. Granados with Nephrology in [place] who recommends evaluating further for vasculitis and recommendations are included above and labs ordered based on his recommendations. If patient's creatinine continues to improve and she is urinating regularly there is potential for outpatient follow-up but if her creatinine continues in the 4-5 range bullet clear still need transfer for renal biopsy. [facility] refused. Patient on [facility] list secondary to no regional bed availability. Patient signed out to Dr. Portillo while awaiting possible transfer, am labs at 0800 and gentle fluids. [0700] (Bandar) Patient received in sign out from [Rowan]. I have reviewed the clinical course overnight. Repeat labs ordered. Patient feeling relatively well. The patient arrived 2 days ago with renal failure. She has been [facility] at [facility]. Her creatinine was 1.6 29 September 2021, increased to 5.76 when seen here. There were multiple associated electrolyte abnormalities. She has significant anemia, likely associated with renal failure. Her H/H was normal . Initial nephrology consultation suggested transfer to an appropriate facility for nephrology consult and renal biopsy. Transfer remains extremely unlikely. She has been hydrated for 2 days. Oral intake is good. She has excellent urine output. It is noted she has hematuria, no pyuria. She has not been on NSAIDs, she is on no meds. She is not menstruating. Her situation was discussed again with Nephrology, Dr. Logan at [facility]. The patient has no concerns about going home, other than generalized statement of not feeling well she has no specific concerning complaints. Dr. Logan has graciously provided the patient with an appointment in 3 days, noon on 04/08/22. Rather than waiting on an indefinite transfer, she now has dedicated follow-up with nephrology Friday.Fadia DUFF 04/07/22@16:20. Discharge Plan Departure Patient Disposition: Home Clinical Impression: Renal failure, Anemia Instructions: DI for Kidney Failure Activity Restrictions/Additional Instructions: Be sure you are drinking plenty of fluids. Take Tylenol if necessary for headache. Do not take Motrin, Advil, similar medications. You will see Dr. Granados or his partner in the [facility] Friday at noon. Rest, be sure you are drinking plenty of fluids. Return to the ER as needed. Prescriptions: No Action No Known Home Medications Referrals: Darnell Granados MD [Non-Staff] - Visit Report Forms: Patient Portal/API
--- NOTE | 2022-04-03 16:49 | DI.US.S_ITS ---
PROCEDURE: US RENAL COMPLETE INDICATIONS: renal failure TECHNIQUE: Real-time scanning was performed of the kidneys and bladder, with image documentation. COMPARISON: None. FINDINGS: Kidneys: Kidneys are normal in size. Right kidney measures 8.8 cm long; left kidney measures 8.0 cm long. Poor corticomedullary differentiation is present bilaterally. Echogenic renal parenchyma is present bilaterally. No hydronephrosis or nephrolithiasis. No suspicious solid mass lesions. Bladder: Patient voided prior to the examination. insufficient differences in specific gravity between ureteral and bladder urine). Miscellaneous: No free pelvic fluid. Left ovarian cyst measuring 37 mm. IMPRESSION: 1. Abnormal appearance of the renal parenchyma bilaterally, consistent with medical renal disease. 2. No hydronephrosis. Dictated by: Darya Garcia M.D. on 04/03/2022 at 18:20 Approved by: Darya Garcia M.D. on 04/03/2022 at 18:21
[2022-04-03] MEDS: SODIUM CHLORIDE 0.9% 1,000 ML 1000 ML IV (16:58)
[2022-04-03 17:04] LABS: Add Manual Diff / Slide Review NO; Basophils Absolute Auto 0 /uL (0-100); Eosinophils Absolute Auto 100 /uL (0-450); Eosinophils Percent Auto 1.6 % (2-4); Hematocrit 26.1 % (36-46); Hemoglobin 9.1 g/dL (12.0-16.0); Lymphocytes Absolute Auto 1300 /uL (1100-4500); Lymphocytes Percent Auto 25.1 % (25-40); Mean Corpuscular HGB Conc 34.7 % (30-36); Mean Corpuscular Volume 89.3 fL (80-100); Monocytes Absolute Auto 400 /uL (0-900); Monocytes Percent Auto 7.4 % (3-14); Neutrophils Absolute Auto 3400 /uL (1500-7000); Neutrophils Percent Auto 64.9 % (50-75); Platelet Count 202 X10^3/uL (150-400); Red Blood Cell Count 2.93 X10^6/uL (4.0-5.2); Red Cell Distribution Width 13.9 % (11.6-14.8); White Blood Cell Count 5.2 X10^3/uL (4.5-11.0)
[2022-04-03 17:08] LABS: COVID19 -Nasal RAPID Negative (Negative)
[2022-04-03 17:13] LABS: Blood Urea Nitrogen 71 mg/dL (7-17); Carbon Dioxide 18 mmol/L (22-32); Chloride 108 mmol/L (98-107); Estimated Glomerular Filt Rate 8 mL/min (>60); Glucose 94 mg/dL (70-100); HEMOLYSIS < 15 (0-50); Sodium 137 mmol/L (137-145)
[2022-04-03 19:14] LABS: Sodium Urine Random 83 mmol/L (30-90)
--- NOTE | 2022-04-03 19:58 | DI.CT.S_ITS ---
PROCEDURE: CT KIDNEY URETER BLADDER (KUB) INDICATIONS: renal failure TECHNIQUE: Axial sections were acquired from the lung bases to the pubic symphysis. Coronal and sagittal reformats were performed. For radiation dose reduction, the following was used: automated exposure control, adjustment of mA and/or kV according to patient size. COMPARISON: None. FINDINGS: Image quality: Excellent. Lung bases: There is minimal atelectasis. Heart: Heart is normal in size. URINARY: Right Kidney and Ureter: No stones or hydronephrosis. No hydroureter. Left Kidney and Ureter: No stones or hydronephrosis. No hydroureter. Bladder: Normal wall thickness. No stones. ABDOMEN: Liver: Noncontrast evaluation of the liver demonstrates no discrete mass. Gallbladder: Within normal limits without calcified gallstones. Biliary ducts: No biliary ductal dilatation. Pancreas: Unremarkable. Spleen: Normal in size. Adrenal Glands: No adrenal nodules. Stomach and Bowel: Stomach, small bowel loops, and colon are normal in caliber and wall thickness. The appendix is normal in appearance. There is colonic diverticulosis without acute diverticulitis. Peritoneum: No abnormal intraperitoneal fluid. No free air. Ventral Wall: No hernia. Abdominal Nodes: No retroperitoneal or mesenteric adenopathy by size criteria. Vessels: Aorta and inferior vena cava are normal in size. PELVIS: Pelvic Organs: An IUD appears in appropriate position within the uterus. There is a thin thin walled cyst within the left hemipelvis measuring up to 4.2 x 3.7 cm with a soft tissue rind suggestive of a physiologic ovarian cyst. Pelvic Nodes: No enlarged lymph nodes. Miscellaneous: No inguinal hernias identified. Bones: Visualized osseous structures demonstrate no suspicious focal lesions. IMPRESSION: 1. No evidence of hydronephrosis. 2. Left adnexal cyst measuring up to 4.2 cm. The findings are nonspecific but likely represents a physiologic cyst. Consider follow-up pelvic ultrasound to demonstrate resolution in 6 weeks if clinically indicated. Dictated by: Mil Irizarry M.D. on 04/03/2022 at 21:24 Approved by: Mil Irizarry M.D. on 04/03/2022 at 21:27
[2022-04-03 20:09] LABS: Bilirubin Urine UA NEGATIVE (NEGATIVE); Glucose Urine UA NEGATIVE (Negative); Ketones Urine UA NEGATIVE (NEGATIVE); Leukocyte Esterase Urine UA NEGATIVE (NEGATIVE); Nitrite Urine UA NEGATIVE (Negative); Occult Blood Urine UA 3+ (Negative); Protein Urine UA 3+ (Negative); Urobilinogen Urine UA 0.2 E.U./dL (0.2)
[2022-04-03 20:12] LABS: pH Urine UA 6.5 (4.5-8.0)
[2022-04-03 20:13] LABS: Appearance Urine UA SL CLOUDY; Color Urine UA OTHER
[2022-04-03 20:14] LABS: Pregnancy Test Urine Negative (Negative)
[2022-04-03 20:16] LABS: Amorphous Sediment Urine 1+; Bacteria Urine Occasional (0-1); Culture Indicated Urine Specimen Cultured; RBC Urine >100/HPF (0-5/HPF); Squamous Epithelial Cell Urine 0-1 /HPF (0-5/HPF); WBC Urine 1-5/HPF (0-5/HPF)
[2022-04-03 22:18] LABS: Alanine Aminotransferase 9 IU/L (<35); Albumin 3.4 g/dL (3.5-5.0); Albumin Globulin Ratio 1.2 (1.0-2.8); Alkaline Phosphatase 47 U/L (38-126); Aspartate Aminotransferase 17 IU/L (14-36); BUN Creatinine Ratio 11.5 (6-22); Bilirubin Total 0.4 mg/dL (0.2-1.3); Blood Urea Nitrogen 68 mg/dL (7-17); Carbon Dioxide 15 mmol/L (22-32); Chloride 111 mmol/L (98-107); Estimated Glomerular Filt Rate 9 mL/min (>60); Globulin 2.9 g/dL (1.7-4.1); Glucose 91 mg/dL (70-100); HEMOLYSIS < 15 (0-50); Phosphorous 5.2 mg/dL (2.5-4.5); Potassium 4.8 mmol/L (3.4-5.1); Sodium 137 mmol/L (137-145); Total Protein 6.3 g/dL (6.3-8.2)
[2022-04-03 22:28] LABS: Calcium 6.5 mg/dL (8.4-10.2)
[2022-04-03] MEDS: SODIUM CHLORIDE 0.9% 1,000 ML 150 ML IV (23:35)
[2022-04-04] VITALS (41 sets, daily range): BP systolic 108–170; BP diastolic 70–103; PULSE 55–84; O2SAT 77–100
[2022-04-04 08:32] LABS: Hematocrit 24.7 % (36-46); Hemoglobin 8.4 g/dL (12.0-16.0)
[2022-04-04 08:38] LABS: BUN Creatinine Ratio 10.8 (6-22); Blood Urea Nitrogen 62 mg/dL (7-17); Carbon Dioxide 16 mmol/L (22-32); Chloride 112 mmol/L (98-107); Estimated Glomerular Filt Rate 9 mL/min (>60); Glucose 85 mg/dL (70-100); HEMOLYSIS < 15 (0-50); Phosphorous 5.3 mg/dL (2.5-4.5); Potassium 4.7 mmol/L (3.4-5.1); Sodium 136 mmol/L (137-145)
[2022-04-04 08:48] LABS: Calcium 6.4 mg/dL (8.4-10.2)
[2022-04-04 09:07] LABS: Albumin 3.1 g/dL (3.5-5.0)
--- NOTE | 2022-04-04 13:48 | PC.NURSE ---
Late entry: Yesterday 04/03/2022 I was asked to place this patient on Transfer list per provider Dr. Elan Portillo. I placed this patient on the transfer lists for [facility], [facility], [facility], & [facility] transfer lists. Overnight DANDY TENDER arrived and informed of my progress.
--- NOTE | 2022-04-04 13:58 | PC.NURSE ---
I called [facility] to check on this patient potential to transfer today. Yaniv from the transfer center that [facility] had called and verified that the bed was still needed. They said they are tight on beds but to call them back in 6 hours if we don't hear from their prior to that.
--- NOTE | 2022-04-04 15:13 | PC.NURSE ---
I called [facility] to check the status of this patient on their transfer list. They stated they had dozens of borders in their Emergency Department and that they would call us when and if there was any potential for transfer.
[2022-04-04] MEDS: ACETAMINOPHEN 325 MG TABLET 650 MG PO (20:37)
[2022-04-05] VITALS (23 sets, daily range): BP systolic 128–173; BP diastolic 65–92; PULSE 52–74; RESP 16–22; TEMP 36.7–37.1; O2SAT 91–100
[2022-04-05 02:07] LABS: Complement C3 80 mg/dL (82-167)
[2022-04-05 03:32] LABS: HBsAg Screen Negative (Negative); Hepatitis A Antibody IgM Negative (Negative); Hepatitis B Core Antibody IgM Negative (Negative); Hepatitis C Antibody <0.1 s/co ratio (0.0-0.9)
[2022-04-05 07:29] LABS: BUN Creatinine Ratio 10.2 (6-22); Blood Urea Nitrogen 64 mg/dL (7-17); Calcium 6.9 mg/dL (8.4-10.2); Carbon Dioxide 17 mmol/L (22-32); Chloride 111 mmol/L (98-107); Estimated Glomerular Filt Rate 8 mL/min (>60); Glucose 84 mg/dL (70-100); HEMOLYSIS < 15 (0-50); Sodium 137 mmol/L (137-145)
[2022-04-05 07:43] LABS: Potassium 4.6 mmol/L (3.4-5.1)
[2022-04-05 08:51] LABS: Osmolality Urine 347 mOsmol/kg (.)
[2022-04-05] MEDS: SODIUM CHLORIDE 0.9% 500 ML 1000 ML IV (11:59)
[2022-04-05] MEDS: SODIUM CHLORIDE 0.9% 1,000 ML 100 ML IV (12:00)
--- NOTE | 2022-04-05 12:32 | PC.NURSE ---
pt has been getting up to use the bathroom , starting last night.instructed her to continue to use the commode
[2022-04-05 14:08] LABS: Alanine Aminotransferase 8 IU/L (<35); Albumin 3.1 g/dL (3.5-5.0); Alkaline Phosphatase 52 U/L (38-126); Aspartate Aminotransferase 13 IU/L (14-36); BUN Creatinine Ratio 10.1 (6-22); Bilirubin Total 0.2 mg/dL (0.2-1.3); Blood Urea Nitrogen 61 mg/dL (7-17); Calcium 6.5 mg/dL (8.4-10.2); Carbon Dioxide 17 mmol/L (22-32); Chloride 113 mmol/L (98-107); Estimated Glomerular Filt Rate 9 mL/min (>60); Glucose 142 mg/dL (70-100); HEMOLYSIS < 15 (0-50); Potassium 5.1 mmol/L (3.4-5.1); Sodium 136 mmol/L (137-145); Total Protein 6.1 g/dL (6.3-8.2)
[2022-04-05 14:10] LABS: Alpha-1-Globulin 0.2 g/dL (0.0-0.4); Alpha-2-Globulin 0.7 g/dL (0.4-1.0); Gamma Globulin 0.9 g/dL (0.4-1.8); Globulin Total 2.6 g/dL (2.2-3.9); Protein, Total 5.6 g/dL (6.0-8.5)
[2022-04-05] MEDS: ACETAMINOPHEN 325 MG TABLET 650 MG PO (15:58)
[2022-04-05 17:11] LABS: Appearance Urine UA SL CLOUDY; Bilirubin Urine UA NEGATIVE (NEGATIVE); Color Urine UA OTHER; Glucose Urine UA TRACE g/dL (Negative); Ketones Urine UA NEGATIVE (NEGATIVE); Leukocyte Esterase Urine UA NEGATIVE (NEGATIVE); Nitrite Urine UA NEGATIVE (Negative); Occult Blood Urine UA 3+ (Negative); Protein Urine UA 2+ (Negative); Urobilinogen Urine UA 0.2 E.U./dL (0.2)
[2022-04-05 17:31] LABS: Amorphous Sediment Urine 1+; Bacteria Urine Few (2-10); RBC Urine >100/HPF (0-5/HPF); Squamous Epithelial Cell Urine 1-5 /HPF (0-5/HPF); WBC Urine 1-5/HPF (0-5/HPF)
[2022-04-05 17:32] LABS: Culture Indicated Urine Specimen Cultured
[2022-04-08 14:08] LABS: Alpha-1 Globulin, Ur 5.5 % (.); Beta Globulin, Ur 19.6 % (.); Gamma Globulin, Ur 14.4 % (.); M-Spike % Not Observed % (Not Observed); Urine Total Protein 144.9 mg/dL (Not Estab.)
[2022-04-10 13:22] LABS: Atypical P-ANCA Titer <1:20 titer (Neg:<1:20); C-ANCA Titer <1:20 titer (Neg:<1:20)
[2022-04-17 12:56] LABS: Antimyeloperoxidase AB >8.0; Antiproteinase 3 AB <0.2
== END 2022-04-05 17:01 | disposition home or self-care (01) ==
PROVIDERS: Emergency Medicine; Emergency Provider Emergency Medicine
DX: N19 Unspecified kidney failure (principal); D63.1 Anemia in chronic kidney disease; Z20.822 Contact with and (suspected) exposure to COVID-19
CPT/HCPCS: 36415; 74176; 76770; 80048; 80053; 80074; 81001; 81025; 82040; 82570; 83516; 83520; 83735; 83935; 84100; 84155; 84156; 84165; 84166; 84300; 85014; 85018; 85025; 86160; 86256; 87086; 87635; 93005; 93010; 96360; 96361; 99284; C9803